=== PATIENT | male | born 1960 ===

== ENCOUNTER 2021-03-28 08:00 | Outpatient (CLI) | payer OTHER ==
[2021-03-28 20:20] LABS: ALBUMIN 3.8 g/dL (3.2-5.5); ALBUMIN/GLOBULIN RATIO 1.3 (1.0-2.2); BILIRUBIN,TOTAL 0.5 mg/dL (0.2-1.0); CALCIUM 8.9 mg/dL (8.5-10.3); CREATININE 2.7 mg/dL (0.6-1.2); POTASSIUM 4.3 mmol/L (3.5-5.0); TOTAL PROTEIN 6.7 g/dL (6.7-8.2)
[2021-03-29 16:50] LABS: BASOPHILS % (AUTO) 0.5 %; EOSINOPHILS # (AUTO) 0.1 10^3/uL (0.0-0.7); EOSINOPHILS % (AUTO) 1.7 %; HCT - HEMATOCRIT 33.3 % (42.0-52.0); HGB - HEMOGLOBIN 10.7 g/dL (14.0-18.0); LYMPHOCYTES # (AUTO) 1.8 10^3/uL (1.5-3.5); LYMPHOCYTES % (AUTO) 28.5 %; MEAN CORPUSCULAR HEMOGLOBIN 27.8 pg (27.0-31.0); MEAN CORPUSCULAR HGB CONC 32.1 g/dL (32.0-36.0); MEAN CORPUSCULAR VOLUME 86.5 fL (80.0-94.0); MEAN PLATELET VOLUME 11.8 fL (7.4-11.4); MONOCYTES # (AUTO) 0.7 10^3/uL (0.0-1.0); MONOCYTES % (AUTO) 11.3 %; NEUTROPHILS # (AUTO) 3.6 10^3/uL (1.5-6.6); NEUTROPHILS % (AUTO) 57.8 %; PLT - PLATELET COUNT 188 10^3/uL (130-450); RED BLOOD COUNT 3.85 10^6/uL (4.70-6.10); RED CELL DISTRIBUTION WIDTH 12.5 % (12.0-15.0); WHITE BLOOD COUNT 6.3 x10^3/uL (4.8-10.8)
== END 2021-03-28 23:59 ==
LOC: LAB.S 08:00
PROVIDERS: ATTEND Emergency Medicine
DX: E11.65 Type 2 diabetes mellitus with hyperglycemia (principal); I10 Essential (primary) hypertension
CPT/HCPCS: 36415; 80053; 83036; 85025

== ENCOUNTER 2021-03-29 08:00 | Outpatient (CLI) | payer OTHER ==
[2021-03-29 20:15] LABS: ESTIMATED AVERAGE GLUCOSE 418 mg/dL (70-100); HEMOGLOBIN A1c% 16.2 % (4.27-6.07)
== END 2021-03-29 23:59 ==
LOC: LAB.S 08:00
PROVIDERS: ATTEND Emergency Medicine
DX: R73.9 Hyperglycemia, unspecified (principal)
CPT/HCPCS: 36415; 83036

== ENCOUNTER 2021-11-28 10:16 | Outpatient (CLI) | payer OTHER ==
[2021-11-28 15:08] LABS: BASOPHILS % (AUTO) 0.2 %; EOSINOPHILS # (AUTO) 0.1 10^3/uL (0.0-0.7); EOSINOPHILS % (AUTO) 1.5 %; HCT - HEMATOCRIT 37.6 % (42.0-52.0); HGB - HEMOGLOBIN 12.1 g/dL (14.0-18.0); LYMPHOCYTES # (AUTO) 2.2 10^3/uL (1.5-3.5); LYMPHOCYTES % (AUTO) 27.4 %; MEAN CORPUSCULAR HEMOGLOBIN 27.5 pg (27.0-31.0); MEAN CORPUSCULAR HGB CONC 32.2 g/dL (32.0-36.0); MEAN CORPUSCULAR VOLUME 85.5 fL (80.0-94.0); MEAN PLATELET VOLUME 11.5 fL (7.4-11.4); MONOCYTES # (AUTO) 0.8 10^3/uL (0.0-1.0); MONOCYTES % (AUTO) 9.8 %; NEUTROPHILS # (AUTO) 4.9 10^3/uL (1.5-6.6); NEUTROPHILS % (AUTO) 60.7 %; PLT - PLATELET COUNT 197 10^3/uL (130-450); RED CELL DISTRIBUTION WIDTH 12.5 % (12.0-15.0); WHITE BLOOD COUNT 8.1 x10^3/uL (4.8-10.8)
[2021-11-28 16:09] LABS: CREATININE,URINE 49.3 mg/dL; MICROALBUM/CREATININE RATIO,UR 38.5 ug/mg (<30.0); MICROALBUMIN,URINE 1.9 mg/dL (0-300.0)
[2021-11-28 16:43] LABS: ALBUMIN 4.6 g/dL (3.2-5.5); ALBUMIN/GLOBULIN RATIO 1.5 (1.0-2.2); ALKALINE PHOSPHATASE 87 IU/L (42-121); ALT ALANINE AMINOTRANSFERASE 17 IU/L (10-60); AST ASPARTATE AMINOTRANSFERASE 21 IU/L (10-42); BILIRUBIN,TOTAL 0.6 mg/dL (0.2-1.0); BUN - BLOOD UREA NITROGEN 74 mg/dL (6-20); CALCIUM 9.3 mg/dL (8.5-10.3); CARBON DIOXIDE - CO2 24 mmol/L (21-32); CHLORIDE 104 mmol/L (101-111); CHOL/HDL RATIO 4.4 (<5.0); CHOLESTEROL 201 mg/dL; CREATININE 3.2 mg/dL (0.6-1.2); GFR - MDRD 20 (>89); GLUCOSE 195 mg/dL (70-100); HDL CHOLESTEROL 46 mg/dL; LDL CHOLESTEROL,CALCULATED 144 mg/dL; LDL/HDL RATIO 3.1 (<3.6); POTASSIUM 5.2 mmol/L (3.5-5.0); SODIUM 138 mmol/L (135-145); TOTAL PROTEIN 7.7 g/dL (6.7-8.2); TRIGLYCERIDES 57 mg/dL; VLDL CHOLESTEROL 11 mg/dL
[2021-11-28 16:55] LABS: THYROID STIMULATING HORMONE 2.25 uIU/mL (0.34-5.60)
[2021-11-28 20:51] LABS: ESTIMATED AVERAGE GLUCOSE 220 mg/dL (70-100); HEMOGLOBIN A1c% 9.3 % (4.27-6.07)
== END 2021-11-28 10:17 | disposition home or self-care (01) ==
LOC: LAB.S 10:16
PROVIDERS: ATTEND Registered Nurse
DX: E11.9 Type 2 diabetes mellitus without complications (principal); Z12.5 Encounter for screening for malignant neoplasm of prostate; Z13.29 Encounter for screening for other suspected endocrine disorder; Z79.899 Other long term (current) drug therapy
CPT/HCPCS: 36415; 80053; 80061; 82043; 82570; 83036; 83721; 84153; 84443; 85025

== ENCOUNTER 2022-02-12 16:38 | Outpatient (CLI) | payer OTHER ==
--- NOTE | 2022-02-13 14:12 | Ultrasound Report ---
PROCEDURE: Retroperitoneal INDICATIONS: STAGE 4 KIDNEY DISEASE TECHNIQUE: Real-time scanning was performed of the kidneys and bladder, with image documentation. COMPARISON: None. FINDINGS: Kidneys: Kidneys are mildly enlarged. Right kidney measures 12.3 cm long; left kidney measures 13.3 cm long. Right renal cortical thickness is 1.8 cm; left renal cortical thickness is 0.8 cm. Renal cortices are slightly echogenic.. There is severe left and moderate to severe right hydronephrosis. U reters are also diffusely dilated bilaterally. No suspicious solid mass lesions. Bladder: Pre-void bladder volume is 654 mL. Post-void residual is 243 mL. Pre-void images demonstr ate no intraluminal masses or stones. Bladder wall is diffusely thickened and trabeculated On pre-vo id images, no ureteral jets are noted with color Doppler interrogation. (Of note, ureteral jets may not be detectable in up to 25% of cases due to insufficient differences in specific gravity between u reteral and bladder urine). Miscellaneous: No free pelvic fluid. Prostate measures 4.3 x 4.1 x 4.9 cm. IMPRESSION: 1.Moderate to severe bilateral hydroureteronephrosis, slightly worse on the left. 2.Post void residual bladder volume is 243 mL. Bladder wall is diffusely thickened and trabeculated, suggesting chronic outlet obstruction. 3.Mild prostatomegaly. Reviewed by: Dashawn Trinidad MD on 02/13/2022 2:10 PM PST Approved by: Dashawn Trinidad MD on 02/13/2022 2:10 PM PST Station ID: [id number]
== END 2022-02-12 16:39 | disposition home or self-care (01) ==
LOC: DI 16:38
PROVIDERS: ATTEND Internal Medicine Nephrology
DX: N18.4 Chronic kidney disease, stage 4 (severe) (principal); N13.30 Unspecified hydronephrosis; N40.0 Benign prostatic hyperplasia without lower urinary tract symptoms

== ENCOUNTER 2022-04-29 15:16 | Emergency (ER) | payer OTHER ==
[2022-04-29 15:34] VITALS: BP 167/80
[2022-04-29] MEDS ORDERED: HYDROmorphone 1 MG/ML CARPUJECT IVP STA (15:46)
--- OUTSIDE RECORDS SUMMARY | 2022-04-29 15:50 | EXTERNAL MEDICAL SUMMARY RPT | Continuity of Care Document ---
:1960 Author Organization [facility] Address [address] [place] [address] Phone Care Team Providers Name Role Phone Maribel Luis Nicoleson Unavailable Unavailable Allergies No information. Encounters No information. Functional Status No information. Immunizations No information. Medications date description facility 2022-02-16 00:00 insulin [facility] 2022-02-26 00:00 insulin gl[facility]ine [facility] 2022-02-16 00:00 lisinopril [facility] 2022-02-26 00:00 lisinopril [facility] 2022-02-16 00:00 lisinopril [facility] 2022-02-26 00:00 lisinopril [facility] 2022-02-16 00:00 insulin gl[facility]ine [facility] 2022-02-26 00:00 insulin gl[facility]ine [facility] 2022-02-16 00:00 insulin glargine [facility] 2022-02-26 00:00 insulin glargine [facility] 2022-02-16 00:00 lisinopril [facility] 2022-02-26 00:00 lisinopril [facility] 2022-02-16 00:00 lisinopril [facility] 2022-02-26 00:00 lisinopril [facility] 2022-02-16 00:00 insulin glargine [facility] 2022-02-26 00:00 insulin glargine [facility] Problems date description facility 2022-02-26 00:00 Other specified disorders of kidney [facility] 2022-02-26 00:00 Obstructive nephropathy [facility] 2022-02-26 00:00 [facility] 2022-04-03 00:00 [facility] 2022-04-04 14:06 Un[facility] 2022-04-12 13:00 Unspecified hydronephrosis [facility] Procedures No information. Results/Labs test date author facility value unit interpret ation Result panel 1 (unknown) (no (unknown) (unknown) (no value) (units (unk nown) date) unknown) (unknown) (no (unknown) (unknown) 04/03/22 (units (unkno wn) date) unknown) (unknown) (no (unknown) (unknown) [id number] (units (unkno wn) date) unknown) (unknown) (no (unknown) (unknown) 61 y/o M (units (unkno wn) date) presents to unknown) clinic as a New Patient. Bilateral hydronephrosis. (unknown) (no (unknown) (unknown) Age/Sex: 61 / M (units (unknown) date) Date of Service: unknown) (unknown) (no (unknown) (unknown) DANNY Padilla (units ( unknown) date) [id number] unknown) (unknown) (no (unknown) (unknown) Attending Dr: (units ( unknown) date) Kishor Becerra MD unknown) (unknown) (no (unknown) (unknown) : 1960 (units (unknown) date) Acct:[id number] unknown) (unknown) (no (unknown) (unknown) Dept at (units (unkno wn) date) . unknown) (unknown) (no (unknown) (unknown) Documented By: (units (unknown) date) Kishor Becerra MD unknown) 04/03/22 1117 (unknown) (no (unknown) (unknown) Draft (units (unkno wn) date) unknown) (unknown) (no (unknown) (unknown) Intake Note: (units (u nknown) date) unknown) (unknown) (no (unknown) (unknown) Intake performed (units (unknown) date) by: unknown) Krystle Stephens (unknown) (no (unknown) (unknown) Intake (units (unkno wn) date) unknown) (unknown) (no (unknown) (unknown) Intake- [facility] (units (unknown) date) Staff unknown) (unknown) (no (unknown) (unknown) [facility] (units (unknown) date) unknown) (unknown) (no (unknown) (unknown) Loc: [facility] (units (unkno wn) date) unknown) (unknown) (no (unknown) (unknown) Patient: (units (unkno wn) date) Suzy Simeon unknown) MR#: [id number] (unknown) (no (unknown) (unknown) Reason For Visit (units (unknown) date) unknown) (unknown) (no (unknown) (unknown) Signed By: (units (unk nown) date) unknown) (unknown) (no (unknown) (unknown) This note may (units ( unknown) date) have been all or unknown) partially generated using voice recognition (unknown) (no (unknown) (unknown) [facility] (units (unknown) date) Visit unknown) (unknown) (no (unknown) (unknown) 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 (units (unknown) date) If there are any unknown) questions, please contact the Medical Records (unknown) (no (unknown) (unknown) may occur. (units (unk nown) date) Occasional unknown) wrong-word or 'sound-alike' substitutions may have (unknown) (no (unknown) (unknown) occurred due to (units (unknown) date) the inherent unknown) limitations of voice recognition software. Please (unknown) (no (unknown) (unknown) read the note (units ( unknown) date) carefully and unknown) recognize, using context, where these substitutions (unknown) (no (unknown) (unknown) software. (units (unkn own) date) Although every unknown) effort is made to edit content, sea kayaking guide errors Result panel 2 (unknown) (no (unknown) (unknown) (no value) (units (unk nown) date) unknown) (unknown) (no (unknown) (unknown) 04/03/22 (units (unkno wn) date) unknown) (unknown) (no (unknown) (unknown) [id number] (units (unkno wn) date) unknown) (unknown) (no (unknown) (unknown) 61 y/o M (units (unkno wn) date) presents to unknown) clinic as a New Patient. Bilateral hydronephrosis. (unknown) (no (unknown) (unknown) Age/Sex: 61 / M (units (unknown) date) Date of Service: unknown) (unknown) (no (unknown) (unknown) DANNY Padilla (units ( unknown) date) [id number] unknown) (unknown) (no (unknown) (unknown) Attending Dr: (units ( unknown) date) Kishor Becerra MD unknown) (unknown) (no (unknown) (unknown) : 1960 (units (unknown) date) Acct:[id number] unknown) (unknown) (no (unknown) (unknown) Dept at (units (unkno wn) date) . unknown) (unknown) (no (unknown) (unknown) Documented By: (units (unknown) date) Kishor Becerra MD unknown) 04/03/22 1117 (unknown) (no (unknown) (unknown) Draft (units (unkno wn) date) unknown) (unknown) (no (unknown) (unknown) Intake Note: (units (u nknown) date) unknown) (unknown) (no (unknown) (unknown) Intake performed (units (unknown) date) by: unknown) Krystle Stephens (unknown) (no (unknown) (unknown) Intake (units (unkno wn) date) unknown) (unknown) (no (unknown) (unknown) Intake- [facility] (units (unknown) date) Staff unknown) (unknown) (no (unknown) (unknown) [facility] (units (unknown) date) unknown) (unknown) (no (unknown) (unknown) Loc: [facility] (units (unkno wn) date) unknown) (unknown) (no (unknown) (unknown) Patient: (units (unkno wn) date) Suzy Simeon unknown) MR#: [id number] (unknown) (no (unknown) (unknown) Reason For Visit (units (unknown) date) unknown) (unknown) (no (unknown) (unknown) Signed By: (units (unk nown) date) unknown) (unknown) (no (unknown) (unknown) This note may (units ( unknown) date) have been all or unknown) partially generated using voice recognition (unknown) (no (unknown) (unknown) [facility]rology Office (units (unknown) date) Visit unknown) (unknown) (no (unknown) (unknown) 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 (units (unknown) date) If there are any unknown) questions, please contact the Medical Records (unknown) (no (unknown) (unknown) may occur. (units (unk nown) date) Occasional unknown) wrong-word or 'sound-alike' substitutions may have (unknown) (no (unknown) (unknown) occurred due to (units (unknown) date) the inherent unknown) limitations of voice recognition software. Please (unknown) (no (unknown) (unknown) read the note (units ( unknown) date) carefully and unknown) recognize, using context, where these substitutions (unknown) (no (unknown) (unknown) software. (units (unkn own) date) Although every unknown) effort is made to edit content, sea kayaking guide errors Result panel 3 (unknown) (no (unknown) (unknown) (no value) (units (unk nown) date) unknown) (unknown) (no (unknown) (unknown) 04/03/22 (units (unkno wn) date) unknown) (unknown) (no (unknown) (unknown) [id number] (units (unkno wn) date) unknown) (unknown) (no (unknown) (unknown) 11:53 (units (unkno wn) date) unknown) (unknown) (no (unknown) (unknown) 61 y/o M (units (unkno wn) date) presents to unknown) clinic as a New Patient. Bilateral hydronephrosis. (unknown) (no (unknown) (unknown) Age/Sex: 61 / M (units (unknown) date) Date of Service: unknown) (unknown) (no (unknown) (unknown) Allergies (units (unkn own) date) unknown) (unknown) (no (unknown) (unknown) [place], [place] (units ( unknown) date) [id number] unknown) (unknown) (no (unknown) (unknown) Attending Dr: (units ( unknown) date) Kishor Becerra MD unknown) (unknown) (no (unknown) (unknown) BP 220/105 H (units (u nknown) date) unknown) (unknown) (no (unknown) (unknown) Blood Pressure (units (unknown) date) Location Lt unknown) brachial (unknown) (no (unknown) (unknown) : 1960 (units (unknown) date) Acct:[id number] unknown) (unknown) (no (unknown) (unknown) Dept at (units (unkno wn) date) . unknown) (unknown) (no (unknown) (unknown) Documented By: (units (unknown) date) Kishor Becerra MD unknown) 04/03/22 1117 (unknown) (no (unknown) (unknown) Draft (units (unkno wn) date) unknown) (unknown) (no (unknown) (unknown) Intake Note: (units (u nknown) date) unknown) (unknown) (no (unknown) (unknown) Intake performed (units (unknown) date) by: unknown) Krystle Stephens (unknown) (no (unknown) (unknown) Intake (units (unkno wn) date) unknown) (unknown) (no (unknown) (unknown) Intake- [facility] (units (unknown) date) Staff unknown) (unknown) (no (unknown) (unknown) [facility] (units (unknown) date) unknown) (unknown) (no (unknown) (unknown) Loc: [facility] (units (unkno wn) date) unknown) (unknown) (no (unknown) (unknown) No Known Drug (units ( unknown) date) Allergies Allergy unknown) (Unverified 04/03/22 11:45) (unknown) (no (unknown) (unknown) Oxygen Delivery (units (unknown) date) Method room air unknown) (unknown) (no (unknown) (unknown) Patient: (units (unkno wn) date) Suzy Simeon unknown) MR#: [id number] (unknown) (no (unknown) (unknown) Position Sitting (units (unknown) date) unknown) (unknown) (no (unknown) (unknown) Pulse 77 (units (unkno wn) date) unknown) (unknown) (no (unknown) (unknown) Pulse Oximetry (units (unknown) date) (%) 100 unknown) (unknown) (no (unknown) (unknown) Pulse Source (units (u nknown) date) Monitor unknown) (unknown) (no (unknown) (unknown) Reason For Visit (units (unknown) date) unknown) (unknown) (no (unknown) (unknown) Respiration 16 (units (unknown) date) unknown) (unknown) (no (unknown) (unknown) Signed By: (units (unk nown) date) unknown) (unknown) (no (unknown) (unknown) This note may (units ( unknown) date) have been all or unknown) partially generated using voice recognition (unknown) (no (unknown) (unknown) [facility] Office (units (unknown) date) Visit unknown) (unknown) (no (unknown) (unknown) 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 (units (unknown) date) If there are any unknown) questions, please contact the Medical Records (unknown) (no (unknown) (unknown) may occur. (units (unk nown) date) Occasional unknown) wrong-word or 'sound-alike' substitutions may have (unknown) (no (unknown) (unknown) occurred due to (units (unknown) date) the inherent unknown) limitations of voice recognition software. Please (unknown) (no (unknown) (unknown) read the note (units ( unknown) date) carefully and unknown) recognize, using context, where these substitutions (unknown) (no (unknown) (unknown) software. (units (unkn own) date) Although every unknown) effort is made to edit content, sea kayaking guide errors Result panel 4 (unknown) (no (unknown) (unknown) (no value) (units (unk nown) date) unknown) (unknown) (no (unknown) (unknown) 04/03/22 (units (unkno wn) date) unknown) (unknown) (no (unknown) (unknown) [id number] (units (unkno wn) date) unknown) (unknown) (no (unknown) (unknown) 11:53 (units (unkno wn) date) unknown) (unknown) (no (unknown) (unknown) 61 y/o M (units (unkno wn) date) presents to unknown) clinic as a New Patient. Bilateral hydronephrosis. (unknown) (no (unknown) (unknown) Age/Sex: 61 / M (units (unknown) date) Date of Service: unknown) (unknown) (no (unknown) (unknown) Allergies (units (unkn own) date) unknown) (unknown) (no (unknown) (unknown) [place] (units ( unknown) date) [id number] unknown) (unknown) (no (unknown) (unknown) Assessment + (units (u nknown) date) Plan unknown) (unknown) (no (unknown) (unknown) Attending Dr: (units ( unknown) date) Kishor Becerra MD unknown) (unknown) (no (unknown) (unknown) BP 220/105 H (units (u nknown) date) unknown) (unknown) (no (unknown) (unknown) Basic Metabolic (units (unknown) date) Panel 2 Weeks unknown) N13.30 - Unspecified hydronephrosis (unknown) (no (unknown) (unknown) Basic Metabolic (units (unknown) date) Panel Today unknown) N13.30 - Unspecified hydronephrosis (unknown) (no (unknown) (unknown) Bilateral (units (unkn own) date) hydronephrosis unknown) (unknown) (no (unknown) (unknown) Blood Pressure (units (unknown) date) Location Lt unknown) brachial (unknown) (no (unknown) (unknown) : 1960 (units (unknown) date) Acct:[id number] unknown) (unknown) (no (unknown) (unknown) Dept at (units (unkno wn) date) . unknown) (unknown) (no (unknown) (unknown) Documented By: (units (unknown) date) Kishor Becerra MD unknown) 04/03/22 1117 (unknown) (no (unknown) (unknown) Draft (units (unkno wn) date) unknown) (unknown) (no (unknown) (unknown) Intake Note: (units (u nknown) date) unknown) (unknown) (no (unknown) (unknown) Intake performed (units (unknown) date) by: unknown) Krystle Stephens (unknown) (no (unknown) (unknown) Intake (units (unkno wn) date) unknown) (unknown) (no (unknown) (unknown) Intake- [facility] (units (unknown) date) Staff unknown) (unknown) (no (unknown) (unknown) [facility] (units (unknown) date) unknown) (unknown) (no (unknown) (unknown) Loc: [facility] (units (unkno wn) date) unknown) (unknown) (no (unknown) (unknown) Medical History (units (unknown) date) (Updated 04/03/22 unknown) @ 12:21 by Kishor Becerra MD) (unknown) (no (unknown) (unknown) No Known Drug (units ( unknown) date) Allergies Allergy unknown) (Unverified 04/03/22 11:45) (unknown) (no (unknown) (unknown) Office (units (unkno wn) date) Procedures unknown) (unknown) (no (unknown) (unknown) Orders (units (unkno wn) date) unknown) (unknown) (no (unknown) (unknown) Orders: (units (unkno wn) date) unknown) (unknown) (no (unknown) (unknown) Oxygen Delivery (units (unknown) date) Method room air unknown) (unknown) (no (unknown) (unknown) PFSH (units (unkno wn) date) unknown) (unknown) (no (unknown) (unknown) Patient: (units (unkno wn) date) Suzy Simeon unknown) MR#: [id number] (unknown) (no (unknown) (unknown) Position Sitting (units (unknown) date) unknown) (unknown) (no (unknown) (unknown) Procedure Notes: (units (unknown) date) unknown) (unknown) (no (unknown) (unknown) Pt is cleaned (units ( unknown) date) and prepared with unknown) bensone, using clean/ aseptic technique for (unknown) (no (unknown) (unknown) Pulse 77 (units (unkno wn) date) unknown) (unknown) (no (unknown) (unknown) Pulse Oximetry (units (unknown) date) (%) 100 unknown) (unknown) (no (unknown) (unknown) Pulse Source (units (u nknown) date) Monitor unknown) (unknown) (no (unknown) (unknown) Reason For Visit (units (unknown) date) unknown) (unknown) (no (unknown) (unknown) Respiration 16 (units (unknown) date) unknown) (unknown) (no (unknown) (unknown) Signed By: (units (unk nown) date) unknown) (unknown) (no (unknown) (unknown) This note may (units ( unknown) date) have been all or unknown) partially generated using voice recognition (unknown) (no (unknown) (unknown) US renal (units (unkno wn) date) complete 2 Weeks unknown) N13.30 - Unspecified hydronephrosis (unknown) (no (unknown) (unknown) [facility] Office (units (unknown) date) Visit unknown) (unknown) (no (unknown) (unknown) 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 (units (unknown) date) If there are any unknown) questions, please contact the Medical Records (unknown) (no (unknown) (unknown) inflated with (units ( unknown) date) 10cc sterile H2O. unknown) New collection device is attached and pt is (unknown) (no (unknown) (unknown) insertion of new (units (unknown) date) device, balloon unknown) is checked for evidence of deficiency, there is (unknown) (no (unknown) (unknown) may occur. (units (unk nown) date) Occasional unknown) wrong-word or 'sound-alike' substitutions may have (unknown) (no (unknown) (unknown) none identified. (units (unknown) date) [address] Arora unknown) Catheter is inserted, without difficulty. Balloon is (unknown) (no (unknown) (unknown) occurred due to (units (unknown) date) the inherent unknown) limitations of voice recognition software. Please (unknown) (no (unknown) (unknown) read the note (units ( unknown) date) carefully and unknown) recognize, using context, where these substitutions (unknown) (no (unknown) (unknown) released. An (units (u nknown) date) overnight urine unknown) bag given as well. (unknown) (no (unknown) (unknown) software. (units (unkn own) date) Although every unknown) effort is made to edit content, sea kayaking guide errors Result panel 5 (unknown) (no date) (unknown) (unknown) 102 mmol/l (unkn own) (unknown) (no date) (unknown) (unknown) 140 mmol/l (unkn own) (unknown) (no date) (unknown) (unknown) 17.8 (units unknown) (unknown) (unknown) (no date) (unknown) (unknown) 2.58 mg/dl (unkn own) (unknown) (no date) (unknown) (unknown) 27 ml/min (unkn own) (unknown) (no date) (unknown) (unknown) 27 ml/min (unkn own) (unknown) (no date) (unknown) (unknown) 28 mmol/l (unkn own) (unknown) (no date) (unknown) (unknown) 3.7 mmol/l (unkn own) (unknown) (no date) (unknown) (unknown) 46 mg/dl (unkn own) (unknown) (no date) (unknown) (unknown) 76 mg/dl (unkn own) (unknown) (no date) (unknown) (unknown) 76 mg/dl (unkn own) (unknown) (no date) (unknown) (unknown) 8.7 mg/dl (unkn own) Result panel 6 (unknown) (no (unknown) (unknown) (no value) (units (unk nown) date) unknown) (unknown) (no (unknown) (unknown) 04/03/22 (units (unkno wn) date) unknown) (unknown) (no (unknown) (unknown) [id number] (units (unkno wn) date) unknown) (unknown) (no (unknown) (unknown) 11:53 (units (unkno wn) date) unknown) (unknown) (no (unknown) (unknown) 61 y/o M (units (unkno wn) date) presents to unknown) clinic as a New Patient. Bilateral hydronephrosis. (unknown) (no (unknown) (unknown) Age/Sex: 61 / M (units (unknown) date) Date of Service: unknown) (unknown) (no (unknown) (unknown) Allergies (units (unkn own) date) unknown) (unknown) (no (unknown) (unknown) [place], [place] (units ( unknown) date) [id number] unknown) (unknown) (no (unknown) (unknown) Assessment + (units (u nknown) date) Plan unknown) (unknown) (no (unknown) (unknown) Attending Dr: (units ( unknown) date) Kishor Becerra MD unknown) (unknown) (no (unknown) (unknown) BP 220/105 H (units (u nknown) date) unknown) (unknown) (no (unknown) (unknown) Basic Metabolic (units (unknown) date) Panel 04/03/22 unknown) N13.30 - Unspecified hydronephrosis (unknown) (no (unknown) (unknown) Basic Metabolic (units (unknown) date) Panel 2 Weeks unknown) N13.30 - Unspecified hydronephrosis (unknown) (no (unknown) (unknown) Bilateral (units (unkn own) date) hydronephrosis unknown) (unknown) (no (unknown) (unknown) Blood Pressure (units (unknown) date) Location Lt unknown) brachial (unknown) (no (unknown) (unknown) : 1960 (units (unknown) date) Acct:[id number] unknown) (unknown) (no (unknown) (unknown) Dept at (units (unkno wn) date) . unknown) (unknown) (no (unknown) (unknown) Documented By: (units (unknown) date) Kishor Becerra MD unknown) 04/03/22 1117 (unknown) (no (unknown) (unknown) Draft (units (unkno wn) date) unknown) (unknown) (no (unknown) (unknown) Intake Note: (units (u nknown) date) unknown) (unknown) (no (unknown) (unknown) Intake performed (units (unknown) date) by: unknown) Krystle Stephens (unknown) (no (unknown) (unknown) Intake (units (unkno wn) date) unknown) (unknown) (no (unknown) (unknown) Intake- [facility] (units (unknown) date) Staff unknown) (unknown) (no (unknown) (unknown) [facility] (units (unknown) date) unknown) (unknown) (no (unknown) (unknown) Loc: [facility] (units (unkno wn) date) unknown) (unknown) (no (unknown) (unknown) Medical History (units (unknown) date) (Updated 04/03/22 unknown) @ 12:21 by Kishor Becerra MD) (unknown) (no (unknown) (unknown) No Known Drug (units ( unknown) date) Allergies Allergy unknown) (Unverified 04/03/22 11:45) (unknown) (no (unknown) (unknown) Office (units (unkno wn) date) Procedures unknown) (unknown) (no (unknown) (unknown) Orders (units (unkno wn) date) unknown) (unknown) (no (unknown) (unknown) Orders: (units (unkno wn) date) unknown) (unknown) (no (unknown) (unknown) Oxygen Delivery (units (unknown) date) Method room air unknown) (unknown) (no (unknown) (unknown) PFSH (units (unkno wn) date) unknown) (unknown) (no (unknown) (unknown) POC Urine Dip (units ( unknown) date) 04/03/22 N13.30 - unknown) Unspecified hydronephrosis (unknown) (no (unknown) (unknown) Patient: (units (unkno wn) date) Suzy Simeon unknown) MR#: [id number] (unknown) (no (unknown) (unknown) Position Sitting (units (unknown) date) unknown) (unknown) (no (unknown) (unknown) Procedure Notes: (units (unknown) date) unknown) (unknown) (no (unknown) (unknown) Pt is cleaned (units ( unknown) date) and prepared with unknown) hibacleanse, using clean/ aseptic technique for (unknown) (no (unknown) (unknown) Pulse 77 (units (unkno wn) date) unknown) (unknown) (no (unknown) (unknown) Pulse Oximetry (units (unknown) date) (%) 100 unknown) (unknown) (no (unknown) (unknown) Pulse Source (units (u nknown) date) Monitor unknown) (unknown) (no (unknown) (unknown) Reason For Visit (units (unknown) date) unknown) (unknown) (no (unknown) (unknown) Respiration 16 (units (unknown) date) unknown) (unknown) (no (unknown) (unknown) Signed By: (units (unk nown) date) unknown) (unknown) (no (unknown) (unknown) This note may (units ( unknown) date) have been all or unknown) partially generated using voice recognition (unknown) (no (unknown) (unknown) US renal (units (unkno wn) date) complete 2 Weeks unknown) N13.30 - Unspecified hydronephrosis (unknown) (no (unknown) (unknown) Urology Office (units (unknown) date) Visit unknown) (unknown) (no (unknown) (unknown) 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 (units (unknown) date) If there are any unknown) questions, please contact the Medical Records (unknown) (no (unknown) (unknown) inflated with (units ( unknown) date) 10cc sterile H2O. unknown) New collection device is attached and pt is (unknown) (no (unknown) (unknown) insertion of new (units (unknown) date) device, balloon unknown) is checked for evidence of deficiency, there is (unknown) (no (unknown) (unknown) may occur. (units (unk nown) date) Occasional unknown) wrong-word or 'sound-alike' substitutions may have (unknown) (no (unknown) (unknown) none identified. (units (unknown) date) [address]ora unknown) Catheter is inserted, without difficulty. Balloon is (unknown) (no (unknown) (unknown) occurred due to (units (unknown) date) the inherent unknown) limitations of voice recognition software. Please (unknown) (no (unknown) (unknown) read the note (units ( unknown) date) carefully and unknown) recognize, using context, where these substitutions (unknown) (no (unknown) (unknown) released. An (units (u nknown) date) overnight urine unknown) bag given as well. (unknown) (no (unknown) (unknown) software. (units (unkn own) date) Although every unknown) effort is made to edit content, sea kayaking guide errors Result panel 7 (unknown) (no (unknown) (unknown) (no value) (units (unk nown) date) unknown) (unknown) (no (unknown) (unknown) (1) Bilateral (units ( unknown) date) hydronephrosis: unknown) (unknown) (no (unknown) (unknown) (2) Incomplete (units (unknown) date) emptying of bladder: unknown) (unknown) (no (unknown) (unknown) (3) Chronic kidney (units (unknown) date) disease (CKD) stage unknown) G4/A1, severely decreased glomerular (unknown) (no (unknown) (unknown) (4) Obstructive (units (unknown) date) uropathy: unknown) (unknown) (no (unknown) (unknown) (5) Insulin (units (un known) date) dependent diabetes unknown) mellitus: (unknown) (no (unknown) (unknown) (6) Hypertension: (units (unknown) date) unknown) (unknown) (no (unknown) (unknown) 04/03/22 (units (unkno wn) date) unknown) (unknown) (no (unknown) (unknown) 04/04/22 1211 (units ( unknown) date) unknown) (unknown) (no (unknown) (unknown) [id number] (units (unkno wn) date) unknown) (unknown) (no (unknown) (unknown) 11/28/2021 was (units (unknown) date) 1.281 unknown) (unknown) (no (unknown) (unknown) 11:53 (units (unkno wn) date) unknown) (unknown) (no (unknown) (unknown) 61 y/o M presents (units (unknown) date) to clinic as a New unknown) Patient. Bilateral hydronephrosis. (unknown) (no (unknown) (unknown) Abdominal exam: (units (unknown) date) Soft, nontender, unknown) without palpable mass or hepatosplenomegaly (unknown) (no (unknown) (unknown) Add'l Complaint: (units (unknown) date) unknown) (unknown) (no (unknown) (unknown) Age/Sex: 61 / M (units (unknown) date) Date of Service: unknown) (unknown) (no (unknown) (unknown) All systems (units (un known) date) reviewed + are unknown) unremarkable except as noted in HPI and below (And (unknown) (no (unknown) (unknown) Allergies (units (unkn own) date) unknown) (unknown) (no (unknown) (unknown) [place] [address] (unit s (unknown) date) unknown) (unknown) (no (unknown) (unknown) And again it (units (u nknown) date) appears that his unknown) renal failure might in part be due to obstructive (unknown) (no (unknown) (unknown) Assessment + Plan (units (unknown) date) unknown) (unknown) (no (unknown) (unknown) Assessment and (units (unknown) date) plan: Patient with unknown) bilateral hydronephrosis incomplete emptying (unknown) (no (unknown) (unknown) Attending Dr: Kishor (unit s (unknown) date) Brittany Becerra MD unknown) (unknown) (no (unknown) (unknown) BP 220/105 H (units (u nknown) date) unknown) (unknown) (no (unknown) (unknown) Basic Metabolic (units (unknown) date) Panel 04/03/22 unknown) N13.30 - Unspecified hydronephrosis (unknown) (no (unknown) (unknown) Basic Metabolic (units (unknown) date) Panel 2 Weeks N13.30 unknown) - Unspecified hydronephrosis (unknown) (no (unknown) (unknown) Bilateral (units (unkn own) date) hydronephrosis unknown) (unknown) (no (unknown) (unknown) Blood Pressure (units (unknown) date) Location Lt brachial unknown) (unknown) (no (unknown) (unknown) Cardiovascular (units (unknown) date) exam: Regular rate unknown) and rhythm without murmur (unknown) (no (unknown) (unknown) Chief Complaint (units (unknown) date) unknown) (unknown) (no (unknown) (unknown) Chief Complaint: (units (unknown) date) Bilateral unknown) hydronephrosis (unknown) (no (unknown) (unknown) Chronic kidney (units (unknown) date) disease (CKD) stage unknown) G4/A1, severely decreased glomerular (unknown) (no (unknown) (unknown) Code(s): (units (unkno wn) date) unknown) (unknown) (no (unknown) (unknown) Const (units (unkno wn) date) unknown) (unknown) (no (unknown) (unknown) : 1960 (units (unknown) date) Acct:[id number] unknown) (unknown) (no (unknown) (unknown) Dept at (units (unkno wn) date) . unknown) (unknown) (no (unknown) (unknown) Details: (units (unkno wn) date) unknown) (unknown) (no (unknown) (unknown) Documented By: (units (unknown) date) Kishor Becerra MD unknown) 04/03/22 1117 (unknown) (no (unknown) (unknown) Essential (primary) (unit s (unknown) date) hypertension unknown) (unknown) (no (unknown) (unknown) Exam Narrative (units (unknown) date) unknown) (unknown) (no (unknown) (unknown) Exam Narrative: (units (unknown) date) unknown) (unknown) (no (unknown) (unknown) Exam (units (unkno wn) date) unknown) (unknown) (no (unknown) (unknown) General: This is an (unit s (unknown) date) awake, alert, unknown) oriented fit-appearing 61-year-old male who (unknown) (no (unknown) (unknown) Genitourinary exam: (unit s (unknown) date) Normal male unknown) (unknown) (no (unknown) (unknown) HPI (units (unkno wn) date) unknown) (unknown) (no (unknown) (unknown) Hypertension type: (units (unknown) date) primary hypertension unknown) Qualified Code(s): I10 (unknown) (no (unknown) (unknown) Hypertension (units (u nknown) date) unknown) (unknown) (no (unknown) (unknown) I10 - Essential (units (unknown) date) (primary) unknown) hypertension (unknown) (no (unknown) (unknown) In reviewing the (units (unknown) date) notes the patient unknown) already meets criteria for renal transplant. (unknown) (no (unknown) (unknown) Incomplete emptying (unit s (unknown) date) of bladder unknown) (unknown) (no (unknown) (unknown) Incomplete emptying (unit s (unknown) date) of bladder, chronic unknown) kidney disease suddenly worsening (unknown) (no (unknown) (unknown) Insulin dependent (units (unknown) date) diabetes mellitus unknown) (unknown) (no (unknown) (unknown) Intake Note: (units (u nknown) date) unknown) (unknown) (no (unknown) (unknown) Intake performed (units (unknown) date) by: Krystle Stephens unknown) (unknown) (no (unknown) (unknown) Intake (units (unkno wn) date) unknown) (unknown) (no (unknown) (unknown) Intake- Clincial (units (unknown) date) Staff unknown) (unknown) (no (unknown) (unknown) [facility] (units (unknown) date) unknown) (unknown) (no (unknown) (unknown) Loc: [facility] (units (unkno wn) date) unknown) (unknown) (no (unknown) (unknown) Lungs: Clear full (units (unknown) date) and equal unknown) (unknown) (no (unknown) (unknown) Medical History (units (unknown) date) (Updated 04/04/22 @ unknown) 12:07 by Kishor Becerra MD) (unknown) (no (unknown) (unknown) N13.30 - (units (unkno wn) date) Unspecified unknown) hydronephrosis (unknown) (no (unknown) (unknown) N13.9 - Obstructive (unit s (unknown) date) and reflux uropathy, unknown) unspecified (unknown) (no (unknown) (unknown) N18.4 - Chronic (units (unknown) date) kidney disease, unknown) stage 4 (severe) (unknown) (no (unknown) (unknown) Neurologic exam: (units (unknown) date) Grossly intact unknown) (unknown) (no (unknown) (unknown) No Known Drug (units ( unknown) date) Allergies Allergy unknown) (Unverified 04/03/22 11:45) (unknown) (no (unknown) (unknown) Obstructive (units (un known) date) uropathy unknown) (unknown) (no (unknown) (unknown) Office Procedures (units (unknown) date) unknown) (unknown) (no (unknown) (unknown) Orders (units (unkno wn) date) unknown) (unknown) (no (unknown) (unknown) Orders: (units (unkno wn) date) unknown) (unknown) (no (unknown) (unknown) Oxygen Delivery (units (unknown) date) Method room air unknown) (unknown) (no (unknown) (unknown) PFSH (units (unkno wn) date) unknown) (unknown) (no (unknown) (unknown) POC Urine Dip (units ( unknown) date) 04/03/22 N13.30 - unknown) Unspecified hydronephrosis (unknown) (no (unknown) (unknown) Patient: (units (unkno wn) date) Yolande Simeonrio MR#: unknown) M00 (unknown) (no (unknown) (unknown) Plan (units (unkno wn) date) unknown) (unknown) (no (unknown) (unknown) Position Sitting (units (unknown) date) unknown) (unknown) (no (unknown) (unknown) Procedure Notes: (units (unknown) date) unknown) (unknown) (no (unknown) (unknown) Pt is cleaned and (units (unknown) date) prepared with unknown) hibacleanse, using clean/ aseptic technique for (unknown) (no (unknown) (unknown) Pulse 77 (units (unkno wn) date) unknown) (unknown) (no (unknown) (unknown) Pulse Oximetry (%) (units (unknown) date) 100 unknown) (unknown) (no (unknown) (unknown) Pulse Source (units (u nknown) date) Monitor unknown) (unknown) (no (unknown) (unknown) Qualifiers: (units (un known) date) unknown) (unknown) (no (unknown) (unknown) R33.9 - Retention (units (unknown) date) of urine, unknown) unspecified (unknown) (no (unknown) (unknown) ROS (units (unkno wn) date) unknown) (unknown) (no (unknown) (unknown) Reason For Visit (units (unknown) date) unknown) (unknown) (no (unknown) (unknown) Respiration 16 (units (unknown) date) unknown) (unknown) (no (unknown) (unknown) Signed By: (units (unk nown) date) <Electronically unknown) signed by Kishor Becerra MD> (unknown) (no (unknown) (unknown) Signed (units (unkno wn) date) unknown) (unknown) (no (unknown) (unknown) Status: Acute (units ( unknown) date) unknown) (unknown) (no (unknown) (unknown) This 61-year-old (units (unknown) date) male is sent to unknown) Urology Clinic as a new patient with complaint (unknown) (no (unknown) (unknown) This note may have (units (unknown) date) been all or unknown) partially generated using voice recognition (unknown) (no (unknown) (unknown) US renal complete 2 (unit s (unknown) date) Weeks N13.30 - unknown) Unspecified hydronephrosis (unknown) (no (unknown) (unknown) Urology Office (units (unknown) date) Visit unknown) (unknown) (no (unknown) (unknown) 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 At a minimum (unit s (unknown) date) the patient was unknown) somewhat in shock and it appeared that he (unknown) (no (unknown) (unknown) and his significant (unit s (unknown) date) other regarding his unknown) situation and the rationale for the (unknown) (no (unknown) (unknown) bladder. He was (units (unknown) date) sent by his unknown) stripe marker with concern for obstructive uropathy. (unknown) (no (unknown) (unknown) chronic kidney (units (unknown) date) disease which could unknown) be multifactorial could be related to his (unknown) (no (unknown) (unknown) creatinine ratio (units (unknown) date) less than 30 mg/g unknown) (unknown) (no (unknown) (unknown) creatinine ratio (units (unknown) date) less than 30 mg/g: unknown) (unknown) (no (unknown) (unknown) diabetes mellitus (units (unknown) date) hypertension and unknown) obstructive uropathy. To evaluate the (unknown) (no (unknown) (unknown) discussion using (units (unknown) date) diagrams showing unknown) pictures of what his kidneys look like after (unknown) (no (unknown) (unknown) filtration rate (units (unknown) date) (GFR) between 15-29 unknown) mL/min/1.73 square meter and albuminuria (unknown) (no (unknown) (unknown) have occurred. If (units (unknown) date) there are any unknown) questions, please contact the Medical Records (unknown) (no (unknown) (unknown) having reviewed his (unit s (unknown) date) renal ultrasound the unknown) patient had a much better (unknown) (no (unknown) (unknown) hyperplasia, lower (units (unknown) date) urinary tract unknown) symptoms (unknown) (no (unknown) (unknown) in 2 weeks we will (units (unknown) date) repeat the BMP. Had unknown) a lengthy discussion with the patient (unknown) (no (unknown) (unknown) inflated with 10cc (units (unknown) date) sterile H2O. New unknown) collection device is attached and pt is (unknown) (no (unknown) (unknown) information (units (un known) date) determine a future unknown) plan of action. Did discuss with them the (unknown) (no (unknown) (unknown) insertion of new (units (unknown) date) device, balloon is unknown) checked for evidence of deficiency, there is (unknown) (no (unknown) (unknown) laboratory for labs (unit s (unknown) date) and we will have him unknown) return in 2 weeks with the above (unknown) (no (unknown) (unknown) may occur. (units (unk nown) date) Occasional unknown) wrong-word or 'sound-alike' substitutions may have (unknown) (no (unknown) (unknown) none identified. 18 (units (unknown) date) F Arora Catheter is unknown) inserted, without difficulty. Balloon is (unknown) (no (unknown) (unknown) obstructive (units (un known) date) uropathy component unknown) plan would be to place a Arora catheter day have (unknown) (no (unknown) (unknown) occurred due to the (unit s (unknown) date) inherent limitations unknown) of voice recognition software. Please (unknown) (no (unknown) (unknown) of bilateral (units (u nknown) date) hydronephrosis unknown) worsening renal function and incomplete emptying of (unknown) (no (unknown) (unknown) of bladder likely (units (unknown) date) secondary to unknown) prostatic obstruction. Patient with worsening (unknown) (no (unknown) (unknown) possible need for (units (unknown) date) cystoscopy at that unknown) follow-up appointment. His PSA on (unknown) (no (unknown) (unknown) problem list) (units ( unknown) date) unknown) (unknown) (no (unknown) (unknown) read the note (units ( unknown) date) carefully and unknown) recognize, using context, where these substitutions (unknown) (no (unknown) (unknown) released. An (units (u nknown) date) overnight urine bag unknown) given as well. (unknown) (no (unknown) (unknown) repeat BMP. At that (unit s (unknown) date) time will make unknown) future plans. Arora catheter is placed (unknown) (no (unknown) (unknown) software. Although (units (unknown) date) every effort is made unknown) to edit content, sea kayaking guide errors (unknown) (no (unknown) (unknown) suspect obstructive (unit s (unknown) date) uropathy, bladder unknown) wall thickening, benign prostatic (unknown) (no (unknown) (unknown) the patient obtain (units (unknown) date) a BMP return to unknown) clinic in 2 weeks with repeat ultrasound and (unknown) (no (unknown) (unknown) today appears in no (unit s (unknown) date) acute distress. unknown) (unknown) (no (unknown) (unknown) today by staff. (units (unknown) date) unknown) (unknown) (no (unknown) (unknown) understanding. A (units (unknown) date) Arora catheter will unknown) be placed today patient will go to the (unknown) (no (unknown) (unknown) uropathy. To test (units (unknown) date) that theory a Arora unknown) catheter will be placed today and in 2 (unknown) (no (unknown) (unknown) weeks we will (units ( unknown) date) repeat the patient's unknown) renal ultrasound. Today we will draw a BMP (unknown) (no (unknown) (unknown) would did not (units ( unknown) date) completely unknown) understand his situation. But after a lengthy Social History date description facility 2022-04-03 00:00 Unknown if ever [facility] Vital Signs date measurement value units 2022-04-03 00:00 BP_diastolic 105 mmHg 2022-04-03 00:00 BP_systolic 220 mmHg 2022-04-03 00:00 heart_rate 77 /min 2022-04-03 00:00 o2_saturation 100 % 2022-04-03 00:00 respiration_rate 16 /min
--- NOTE | 2022-04-29 16:00 | ED Physician Documentation ---
History of Present Illness - Stated complaint Stated Complaint: CATH BAG LEAK - Chief complaint Chief Complaint: General - History obtained from History obtained from: Patient - Additonal information Additional information: He has indwelling Arora due to urinary retention. The leg bag sprung a leak yesterday and he needs a new leg bag. He also has questions about how to schedule his ultrasound. PD PAST MEDICAL HISTORY - Allergies Allergies/Adverse Reactions: Allergies Allergy/AdvReac Type Severity Reaction Status Date / Time No Known Drug Allergies Allergy Verified 04/29/22 15:34 PD ED PE NORMAL - Vitals Vital signs reviewed: Yes - General General: Alert and oriented X 3, No acute distress - Neuro Neuro: Alert and oriented X 3, Normal speech - Psych Psych: Normal mood, Normal affect Results - Vitals Vitals: Vital Signs - 24 hr 04/29/22 15:32 Temperature 37.3 C Heart Rate 76 Respiratory 16 Rate Blood Pressure 167/80 H O2 Saturation 100 Oxygen O2 Source Room air PD Medical Decision Making - ED course ED course: He was provided with new leg bags and guidance on how to schedule the ultrasound that has already been ordered. Departure - Departure Disposition: 01 Home, Self Care Clinical Impression: Arora catheter problem Condition: Good Record reviewed to determine appropriate education?: Yes Instructions: ED Catheter Care Arora Discharge Date/Time: 04/29/22 16:21
== END 2022-04-29 16:21 | disposition home or self-care (01) ==
LOC: ED 15:16
DX: T83.038A Leakage of other urinary catheter, initial encounter (principal); R33.9 Retention of urine, unspecified
CPT/HCPCS: 99281; 99282

== ENCOUNTER 2022-04-30 13:04 | Outpatient (CLI) | payer OTHER ==
--- NOTE | 2022-04-30 15:57 | Ultrasound Report ---
PROCEDURE: Retroperitoneal INDICATIONS: BILATERAL HYDRONEPHROSIS TECHNIQUE: Real-time scanning was performed of the retroperitoneal organs, with image documentation. COMPARISON: None. FINDINGS: Right kidney measures 12.4 cm in length and 1.5 cm in cortical thickness. Zdaz-dy-gragdyua hydronephr osis has improved from prior exam. No proximal obstructing lesion. Left kidney measures 11.9 cm in length and 1.3 cm in cortical thickness. Moderate to severe hydroneph rosis is similar to prior exam. Both ureters are dilated measuring up to 2.3 cm in diameter on the left. The distal left ureter, ther e is a solid soft tissue mass lesion measuring 2.7 cm. Right ureter is less well visualized. In the bladder, there is a Arora catheter present. There is a nevertheless bladder wall thickening me asuring up to 1.1 cm. Arora catheter is clamped IMPRESSION: 1. Persistent severe left hydronephrosis, probably related to distal left ureteral mass lesion. Consi amrita follow-up CT abdomen and pelvis with contrast. 2. Persistent but improved mild to moderate right hydronephrosis. 3. Arora catheter in the bladder. Significant bladder wall thickening present. Reviewed by: Dwight Knox MD on 04/30/2022 2:55 PM AKST Approved by: Dwight Knox MD on 04/30/2022 2:55 PM AKST Station ID: [id number]
== END 2022-04-30 13:05 | disposition home or self-care (01) ==
LOC: DI 13:04
PROVIDERS: ATTEND Urology
DX: N13.30 Unspecified hydronephrosis (principal)
CPT/HCPCS: 36415; 80048

== ENCOUNTER 2022-04-30 14:38 | Outpatient (CLI) | payer OTHER ==
[2022-05-01 17:57] LABS: CREATININE 2.6 mg/dL (0.6-1.2)
[2022-05-01 19:18] LABS: CALCIUM 8.9 mg/dL (8.5-10.3); POTASSIUM 3.4 mmol/L (3.5-5.0)
== END 2022-04-30 14:39 | disposition home or self-care (01) ==
LOC: LAB 14:38
PROVIDERS: ATTEND Urology
DX: N13.30 Unspecified hydronephrosis (principal)
CPT/HCPCS: 36415; 80048

== ENCOUNTER 2022-05-22 12:50 | Outpatient (CLI) | payer OTHER ==
[~2022-05-22 12:50] MED LIST: GADOBUTROL 10 MMOL/10 ML VIAL ONE
[2022-05-22] MEDS: GADOBUTROL 10 MMOL/10 ML VIAL IVP ONE (14:39)
--- NOTE | 2022-05-22 15:02 | MRI Report ---
PROCEDURE: PELVIS W/WO INDICATIONS: LEFT URETERAL MASS TECHNIQUE: Multiphasic multisequence MRI of the pelvis, with and without contrast. 8.2 ml gadolinium based was used COMPARISON: Ultrasound 04/30/2022, 02/12/2022 FINDINGS: There is moderate bilateral hydronephrosis and severe ureterectasis. No distinct filling defects with in the ureters to confirm findings on comparison ultrasound. Bilateral urothelial wall thickening. Se junior thickening of the urinary bladder. No liver mass. Gallbladder is unremarkable. Normal size of the spleen. No pancreatic ductal dilation. No adrenal nodules. Visualized bowel is unremarkable. No central adenopathy. No infrarenal aortic an eurysm. IMPRESSION: No filling defect within the left ureter. Finding on comparison probably represented some form of uri nary sludge. Recommend follow-up ultrasound in one month to ensure resolution of prior findings. Moderate, bilateral hydronephrosis and severe ureterectasis, similar to prior. Diffuse urinary bladder wall thickening and urothelial wall thickening, concerning for infection. Reviewed by: Doc Guerrero on 05/22/2022 3:01 PM PST Approved by: Doc Guerrero on 05/22/2022 3:01 PM PST Station ID: [id number]
== END 2022-05-22 12:51 | disposition home or self-care (01) ==
LOC: DI 12:50
PROVIDERS: ATTEND Urology
DX: N18.4 Chronic kidney disease, stage 4 (severe) (principal); N13.30 Unspecified hydronephrosis; R33.9 Retention of urine, unspecified; N13.4 Hydroureter

== ENCOUNTER 2022-05-22 14:27 | Outpatient (CLI) | payer OTHER ==
[2022-05-22 15:11] LABS: CALCIUM 8.9 mg/dL (8.5-10.3); POTASSIUM 3.7 mmol/L (3.5-5.0)
== END 2022-05-22 14:28 | disposition home or self-care (01) ==
LOC: LAB 14:27
PROVIDERS: ATTEND Urology
DX: Z01.812 Encounter for preprocedural laboratory examination (principal); N18.4 Chronic kidney disease, stage 4 (severe); N13.30 Unspecified hydronephrosis; R33.9 Retention of urine, unspecified; N13.4 Hydroureter
CPT/HCPCS: 36415; 72197; 80048; A9585

== ENCOUNTER 2022-07-16 22:15 | Outpatient (CLI) | payer OTHER ==
--- NOTE | 2022-07-17 17:14 | Ultrasound Report ---
PROCEDURE: Retroperitoneal INDICATIONS: HYDRONEPHROSIS TECHNIQUE: Real-time scanning was performed of the retroperitoneal organs, with image documentation. COMPARISON: Retroperitoneal ultrasound 04/30/2022, 02/12/2022. FINDINGS: Kidneys: Kidneys are normal in size. Right kidney measures 11.6 cm long; left kidney measures 11.6 cm long. Right renal cortical thickness is 1.3 cm; left renal cortical thickness is 0.9 cm. Moderate severe bilateral hydronephrosis relatively unchanged compared to prior exam. Visualized ureters are also dilated. Bladder: Pre-void bladder volume is 466 mL. Post-void residual is 116 mL. Pre-void images demonstr ate no intraluminal masses or stones. On pre-void images, only the right ureteral jet is noted with color Doppler interrogation. (Of note, ureteral jets may not be detectable in up to 25% of cases due to insufficient differences in specific gravity between ureteral and bladder urine). Bladder wall d emonstrates an overall thickened appearance as noted on prior exams. Miscellaneous: No free abdominal fluid. IMPRESSION: Bilateral hydronephrosis and hydroureter appearing relatively unchanged. Based on ultrasound, source of obstruction is not clearly identified. Reviewed by: Gia Mercado MD on 07/17/2022 5:13 PM PDT Approved by: Gia Mercado MD on 07/17/2022 5:13 PM PDT Station ID: [id number]
== END 2022-07-16 22:16 | disposition home or self-care (01) ==
LOC: DI 22:15
PROVIDERS: ATTEND Urology
DX: N13.30 Unspecified hydronephrosis (principal)

== ENCOUNTER 2022-08-08 18:40 | Outpatient (CLI) | payer OTHER ==
[2022-08-08 19:22] LABS: CALCIUM 8.7 mg/dL (8.5-10.3); CREATININE 2.6 mg/dL (0.6-1.2); POTASSIUM 4.5 mmol/L (3.5-5.0)
== END 2022-08-08 18:41 | disposition home or self-care (01) ==
LOC: LAB 18:40
PROVIDERS: ATTEND Urology
DX: N18.4 Chronic kidney disease, stage 4 (severe) (principal)
CPT/HCPCS: 36415; 80048

== ENCOUNTER 2022-09-12 16:58 | Outpatient (CLI) | payer OTHER ==
--- NOTE | 2022-09-13 09:22 | Ultrasound Report ---
PROCEDURE: Retroperitoneal INDICATIONS: BILATERAL HYDRONEPHROSIS TECHNIQUE: Real-time scanning was performed of the retroperitoneal organs, with image documentation. COMPARISON: None. FINDINGS: Kidneys: Kidneys are normal in size. Right kidney measures 12.2 cm long; left kidney measures 11.5 cm long. Right renal cortical thickness is 1.8 cm; left renal cortical thickness is 0 point cm. Mode rate bilateral hydronephrosis. No nephrolithiasis. Bladder: Pre-void bladder volume is 401 mL. Post-void residual is 139 mL. Pre-void images demonstr ate no intraluminal masses or stones. On pre-void images, the left ureteral jets are noted with colo r Doppler interrogation. (Of note, ureteral jets may not be detectable in up to 25% of cases due to insufficient differences in specific gravity between ureteral and bladder urine). Trabeculated bladde r wall. Miscellaneous: No free abdominal fluid. Ureterectasis. Prostate is enlarged, measuring 4.5 x 3.9 x 6.2 cm. IMPRESSION: Moderate bilateral hydronephrosis, likely due to chronic obstruction from a large prostate. Elevated post void residual. Reviewed by: Doc Guerrero on 09/13/2022 9:21 AM PDT Approved by: Doc Guerrero on 09/13/2022 9:21 AM PDT Station ID: [id number]
== END 2022-09-12 16:59 | disposition home or self-care (01) ==
LOC: DI 16:58
PROVIDERS: ATTEND Urology
DX: N13.30 Unspecified hydronephrosis (principal); N40.0 Benign prostatic hyperplasia without lower urinary tract symptoms

== ENCOUNTER 2022-09-17 13:42 | Outpatient (CLI) | payer OTHER ==
[2022-09-17 21:14] LABS: ALBUMIN 4.2 g/dL (3.2-5.5); ALBUMIN/GLOBULIN RATIO 1.3 (1.0-2.2); BILIRUBIN,TOTAL 0.9 mg/dL (0.2-1.0); CALCIUM 8.8 mg/dL (8.5-10.3); CREATININE 3.1 mg/dL (0.6-1.2); POTASSIUM 4.4 mmol/L (3.5-5.0); TOTAL PROTEIN 7.5 g/dL (6.7-8.2)
[2022-09-17 21:48] LABS: ESTIMATED AVERAGE GLUCOSE 183 mg/dL (70-100)
== END 2022-09-17 13:43 | disposition home or self-care (01) ==
LOC: LAB.S 13:42
PROVIDERS: ATTEND Urology
DX: E11.22 Type 2 diabetes mellitus with diabetic chronic kidney disease (principal); N18.4 Chronic kidney disease, stage 4 (severe)
CPT/HCPCS: 36415; 80053; 83036

== ENCOUNTER 2022-10-29 17:49 | Outpatient (CLI) | payer OTHER ==
--- NOTE | 2022-10-30 10:33 | Ultrasound Report ---
PROCEDURE: Retroperitoneal INDICATIONS: BILATERAL HYDRONEPHROSIS TECHNIQUE: Real-time scanning was performed of the retroperitoneal organs, with image documentation. COMPARISON: 09/12/2022 FINDINGS: Right kidney measures 10 cm. Left kidney measures 11 cm. Within the cortices bilaterally measuring 0. 6 to 0.7 cm. Moderate bilateral collecting system dilation, persistent post void. Bladder wall thickening. Enlarged prostate measuring up to 5.4 x 4.3 cm. Postvoid residual is 37.5 cc . Ureteral jets not well seen. (Of note, ureteral jets may not be detectable in up to 25% of cases du e to insufficient differences in specific gravity between ureteral and bladder urine). IMPRESSION: Moderate collecting system dilation, persistent post void. Enlarged prostate. Post void residual is 3 7.5 cc. Persistent bladder wall thickness. Reviewed by: Dane Fernandez MD on 10/30/2022 10:32 AM PDT Approved by: Dane Fernandez MD on 10/30/2022 10:32 AM PDT Station ID: [id number]
== END 2022-10-29 17:50 | disposition home or self-care (01) ==
LOC: DI 17:49
PROVIDERS: ATTEND Urology
DX: N13.30 Unspecified hydronephrosis (principal); N40.0 Benign prostatic hyperplasia without lower urinary tract symptoms

== ENCOUNTER 2022-12-10 06:29 | Day surgery (SDC) | payer OTHER ==
[2022-12-10] MEDS ORDERED: LACTATED RINGERS 1,000 ML IV ONE ×4 (06:35→11:14)
[2022-12-10] MEDS ORDERED: PROPOFOL 500 MG/50 ML 500 MG/50 ML VIAL ONE (06:52)
[2022-12-10] MEDS ORDERED: LIDOCAINE 2% URO-JET 5 ML SYRINGE UR ONE ×2 (07:06→07:56)
[2022-12-10] MEDS ORDERED: ceFAZolin 2 GM VIAL ONE (07:11)
[2022-12-10] MEDS ORDERED: ONDANSETRON 4 MG/2 ML VIAL IVP PRN ×2 (07:13→08:46)
[2022-12-10] MEDS ORDERED: NALOXONE 0.4 MG/ML VIAL IVP PRN (07:13)
[2022-12-10] MEDS ORDERED: ePHEDrine 50 MG/ML VIAL IVP PRN (07:13)
[2022-12-10] MEDS ORDERED: ATROPINE ABBOJECT 1 MG/10 ML SYRINGE IVP PRN (07:13)
[2022-12-10] MEDS ORDERED: fentaNYL 100 MCG/2 ML VIAL IVP PRN (07:13)
[2022-12-10] MEDS ORDERED: HYDROmorphone 0.5 MG/0.5 ML SYRINGE IVP PRN (07:13)
--- NOTE | 2022-12-10 07:13 | ANESTHESIA ---
Pre-Anesthesia VS, & Labs - Diagnosis urinary retention - Procedure cysto w b/l ureteral cath Height: 5 ft 7.5 in Weight (kg): 78.6 kg Body Mass Index: 26.7 BMI Classification: Overweight - NPO >8 hours - Lab Results Current Lab Results: Laboratory Tests 12/10/22 06:53: POC Whole Bld Glucose 111 H Lab results reviewed: Yes Home Medications and Allergies Home Medications: Ambulatory Orders Insulin NPH Hum/Reg Insulin Hm [Humulin 70/30 Kwikpen] 10 unit SUBQ DAILY 12/03/22 Tamsulosin [Flomax] 0.4 mg PO DAILY 12/03/22 amLODIPine [Norvasc] 10 mg PO DAILY 12/03/22 Insulin NPH Hum/Reg Insulin Hm [Humulin 70/30 Kwikpen] 10 unit SUBQ DAILY 12/03/22 Tamsulosin [Flomax] 0.4 mg PO DAILY 12/03/22 amLODIPine [Norvasc] 10 mg PO DAILY 12/03/22 Allergies/Adverse Reactions: Allergies Allergy/AdvReac Type Severity Reaction Status Date / Time No Known Drug Allergies Allergy Verified 04/29/22 15:34 Anes History & Medical History - Anesthetic History Anesthesia Complications: reports: No previous complications Family history of Anesthesia Complications: Denies Family history of Malignant Hyperthermia: Denies - Medical History Cardiovascular: reports: Hypertension Pulmonary: reports: None Gastrointestinal: reports: None Urinary: reports: Retention, Other Musculoskeletal: reports: None Endocrine/Autoimmune: reports: Type 2 diabetes Skin: reports: Eczema Smoking Status: Never smoker Psychosocial: reports: No issues indicated Exam General: Alert, Oriented x3, Cooperative Dental: WNL Mouth Openin Fingerbreadth Neck Mobility: Normal Mallampati classification: II Thyromental Distance: 4-6 cm Respiratory: Lungs clear Cardiovascular: Regular rate Plan Anesthesia Type: General Consent for Procedure(s) Verified and Reviewed: Yes Code Status: Attempt Resuscitation ASA classification: 2-Mild systemic disease Is this case an emergency?: No
[2022-12-10] MEDS ORDERED: MIDAZOLAM 2 MG/2 ML VIAL ONE (07:27)
[2022-12-10] MEDS ORDERED: iohexoL-240 10 ML VIAL IVP ONE ×2 (07:27→07:54)
[2022-12-10] MEDS ORDERED: fentaNYL 100 MCG/2 ML VIAL ONE (07:27)
[2022-12-10] MEDS ORDERED: GLYCOPYRROLATE 1 MG/5 ML VIAL ONE (07:59)
[2022-12-10] MEDS ORDERED: LACTATED RINGERS 1,000 ML IV SCH ×2 (08:00→09:00)
[2022-12-10] MEDS ORDERED: ePHEDrine 50 MG/ML VIAL IVP ONE (08:03)
[2022-12-10] MEDS ORDERED: HYDROcod/ACETAM 5/325 MG TABLET PO PRN (08:46)
--- NOTE | 2022-12-10 08:51 | Discharge Plan ---
Discharge Plan Problem Reviewed?: Yes Disposition: Home, Self Care Condition: Good Prescriptions: Docusate Sodium 100Mg Capsule [Colace 100Mg Capsule] 100 mg PO DAILY #7 cap HYDROcod/ACETAM 5/325 [[place] 5/325] 1 tab PO Q4H PRN #6 tablet PRN Reason: Pain Diet: Diabetic Activity Restrictions: No Restrictions Shower Restrictions: No Driving Restrictions: No Instruction Topics: Stents Ureteral Additional Instructions or Follow Up instructions: You will be contacted for followup in 1-2 weeks, we will arrange a blood test for you to do a few days beforehand No Smoking: If you smoke, Please STOP! Call for help. Follow-up with: Khalif Ramírez MD [Provider Admit Priv/Credential] -
--- NOTE | 2022-12-10 08:55 | OPERATIVE REPORT ---
Operative Report - General Procedure Date: 12/10/22 Planned Procedure: Cystoscopy, cystogram, bilateral retrograde pyelogram, possible bilateral ureteroscopy Pre-Op Diagnosis: bilateral hydronephrosis, renal failure Procedure Performed: Cystoscopy, bilateral retrograde pyelogram, bilateral ureteral stent placement, exam under anesthesia Post Op Diagnosis: Bilateral ureterovesical junction obstruction - Procedure Note Primary Surgeon: Darrell Anesthesia Provider: DEMETRIO Wilson Anesthesia Technique: General LMA Estimated Blood Loss (mL): 0 Indications: Bilateral hydronephrosis, renal failure Findings: Moderate trilobar prostate obstruction Moderate trabeculations in bladder Severe bilateral hydroureter with severe tortuosity Bilateral stents placed Prostate exam without nodules Complications: none - Other Other Information/Narrative: After informed consent was obtained, the patient was brought to the OR and laid in the supine position at that point in time the patient was anesthetized per anesthesia protocols and prepped and draped in the usual sterile fashion in the dorsal lithotomy position. A formal timeout was performed confirming the patient procedure and laterality. A 22 [place] cystoscope was advanced into the urinary bladder. He had trilobar enlargement of his prostate lobes but it did not appear to be severely obstructed though certainly some moderate obstruction possible. The bladder itself has moderate trabeculations and a small diverticula at the dome of the bladder. The ureteral orifices were slightly narrow but otherwise orthotopic. Using a sensor wire to gently cannulate the left UO, a 5 [place] ureteral catheter was placed into the left UO. A gentle retrograde pyelogram showed a severely tortuous and enlarged ureter on the left. Attention was paid to the right side where a similar procedure was performed. Again, there was severe hydroureter seen to the level of the UVJ with severe tortuosity. While keeping the bladder drained with the cystoscope we watch to see if there was any drainage of the ureter of this contrast. On both sides there was minimal to no drainage of the contrast despite adequate drainage of the bladder. Approaching the left UO again, with difficulty, and using a angled Glidewire, we were eventually able to get a wire up into the kidney on the left side and straighten out the ureter. A 6 [place] 26 cm double-J ureteral stent was placed with good curling in the kidney and good curling noted in the bladder. A similar procedure with similar difficulties was repeated on the right. He is bladder was emptied and a Uro-Jet was placed. A digital rectal exam showed a slightly firm, but anodular enlarged prostate about 30cc on my exam. The patient was then reversed from anesthesia and brought to the PACU without further incident. All counts were correct. The plan will be for him to follow-up in 2 weeks time with a basic metabolic panel to evaluate his renal function now that he has possibly been unobstructed. He will likely need further imaging of his pelvis to better assess his anatomy and clarify further plans.
--- NOTE | 2022-12-10 09:34 | ANESTHESIA POST OP EVALUATION ---
Anesthesia Post Eval - Post Anesthesia Eval Vitals: Last Vital Signs Temp 36 C L 12/10/22 09:30 Pulse 68 12/10/22 09:30 Resp 16 12/10/22 09:30 BP 139/80 H 12/10/22 09:30 Pulse Ox 97 12/10/22 09:30 O2 Flow Rate CV Function Including HR & BP: Stable Pain Control: Satisfactory Nausea & Vomiting: Negative Mental Status: Baseline Respiratory Status: Airway Patent Hydration Status: Satisfactory Anesthesia Complications: None
[2022-12-10 11:58] VITALS: BP 148/78; O2SAT 98
--- NOTE | 2022-12-10 15:06 | XRAY Report ---
PROCEDURE: OR C-Arm Procedure INDICATIONS: cystogram FLUORO TIME: 1.3 MIN TECHNIQUE: 2 fluoroscopic views were obtained COMPARISON: None. FINDINGS: 2 fluoroscopic views were obtained during a cystogram procedure. IMPRESSION: Fluoroscopic views as above. Reviewed by: Saulo Lizarraga on 12/10/2022 3:04 PM PDT Approved by: Saulo Lizarraga on 12/10/2022 3:04 PM PDT Station ID: [id number]
== END 2022-12-10 06:30 | disposition home or self-care (01) ==
LOC: SDS 06:29
PROVIDERS: ATTEND Urology
DX: N13.0 Hydronephrosis with ureteropelvic junction obstruction (principal); N32.89 Other specified disorders of bladder; N32.3 Diverticulum of bladder; N13.8 Other obstructive and reflux uropathy; E11.65 Type 2 diabetes mellitus with hyperglycemia; I12.9 Hypertensive chronic kidney disease with stage 1 through stage 4 chronic kidney disease, or unspecified chronic kidney disease; N18.4 Chronic kidney disease, stage 4 (severe); E11.22 Type 2 diabetes mellitus with diabetic chronic kidney disease; Z79.4 Long term (current) use of insulin
CPT/HCPCS: 52005; 52332; C1758; C2617; J7120; Q9966

== ENCOUNTER 2022-12-12 13:26 | Outpatient (CLI) | payer OTHER ==
[2022-12-12 19:42] LABS: HCT - HEMATOCRIT 35.6 % (42.0-52.0); HGB - HEMOGLOBIN 10.9 g/dL (14.0-18.0); MEAN CORPUSCULAR HEMOGLOBIN 27.2 pg (27.0-31.0); MEAN CORPUSCULAR HGB CONC 30.6 g/dL (32.0-36.0); MEAN CORPUSCULAR VOLUME 88.8 fL (80.0-94.0); RED BLOOD COUNT 4.01 10^6/uL (4.70-6.10); RED CELL DISTRIBUTION WIDTH 13.2 % (12.0-15.0)
[2022-12-12 20:07] LABS: CALCIUM 9.7 mg/dL (8.5-10.3); CREATININE 2.1 mg/dL (0.6-1.3); PHOSPHORUS 3.6 mg/dL (2.5-5.0); POTASSIUM 4.7 mmol/L (3.5-4.5)
== END 2022-12-12 13:27 | disposition home or self-care (01) ==
LOC: LAB.S 13:26
PROVIDERS: ATTEND Internal Medicine Nephrology
DX: E11.9 Type 2 diabetes mellitus without complications (principal); N05.9 Unspecified nephritic syndrome with unspecified morphologic changes; N25.81 Secondary hyperparathyroidism of renal origin; E83.30 Disorder of phosphorus metabolism, unspecified; D70.9 Neutropenia, unspecified; D63.1 Anemia in chronic kidney disease
CPT/HCPCS: 36415; 80048; 83970; 84100; 85027

== ENCOUNTER 2023-01-21 06:31 | Day surgery (SDC) | payer OTHER ==
[~2023-01-21 06:31] MED LIST changes: -GADOBUTROL 10 MMOL/10 ML VIAL ONE; +ceFAZolin 2 GM VIAL ONE
[2023-01-21] MEDS ORDERED: LACTATED RINGERS 1,000 ML IV ONE ×2 (06:33→08:37)
[2023-01-21 06:45] VITALS: O2SAT 100
[2023-01-21] MEDS ORDERED: fentaNYL 100 MCG/2 ML VIAL ONE (06:59)
[2023-01-21] MEDS ORDERED: PROPOFOL 500 MG/50 ML 500 MG/50 ML VIAL ONE (06:59)
[2023-01-21] MEDS ORDERED: SUCCINYLCHOLINE 200 MG/10 ML VIAL ONE (07:00)
[2023-01-21] MEDS ORDERED: LIDOCAINE 2% URO-JET 5 ML SYRINGE UR ONE ×2 (07:22→08:18)
[2023-01-21] MEDS ORDERED: HYDROmorphone 0.5 MG/0.5 ML SYRINGE IVP PRN (07:51)
[2023-01-21] MEDS ORDERED: fentaNYL 100 MCG/2 ML VIAL IVP PRN (07:51)
[2023-01-21] MEDS ORDERED: ePHEDrine 50 MG/ML VIAL IVP PRN (07:51)
[2023-01-21] MEDS ORDERED: NALOXONE 0.4 MG/ML VIAL IVP PRN (07:51)
[2023-01-21] MEDS ORDERED: ATROPINE ABBOJECT 1 MG/10 ML SYRINGE IVP PRN (07:51)
[2023-01-21] MEDS ORDERED: ONDANSETRON 4 MG/2 ML VIAL IVP PRN ×2 (07:51→08:40)
--- NOTE | 2023-01-21 07:51 | ANESTHESIA ---
Pre-Anesthesia VS, & Labs - Diagnosis hydronephrosis - Procedure cysto + b/l ureteral stent/dilation Vital Signs: Temp Pulse Resp BP Pulse Ox O2 Flow Rate 36.3 C L 61 16 185/96 H 100 01/21/23 06:38 01/21/23 06:38 01/21/23 06:38 01/21/23 06:38 01/21/23 06:38 Height: 5 ft 7 in Weight (kg): 75.5 kg Body Mass Index: 26.0 BMI Classification: Overweight - NPO >8 hours - Lab Results Current Lab Results: Laboratory Tests 01/21/23 06:51: POC Whole Bld Glucose 123 H Lab results reviewed: Yes Home Medications and Allergies Home Medications: Ambulatory Orders Chlorthalidone 12.5 mg PO DAILY 01/21/23 Insulin NPH Hum/Reg Insulin Hm [Humulin 70/30 Kwikpen] 10 unit SUBQ DAILY PRN 12/03/22 Tamsulosin [Flomax] 0.4 mg PO DAILY 12/03/22 Chlorthalidone 12.5 mg PO DAILY 01/21/23 Allergies/Adverse Reactions: Allergies Allergy/AdvReac Type Severity Reaction Status Date / Time No Known Drug Allergies Allergy Verified 04/29/22 15:34 Anes History & Medical History - Anesthetic History Anesthesia Complications: reports: No previous complications Family history of Anesthesia Complications: Denies Family history of Malignant Hyperthermia: Denies - Medical History Cardiovascular: reports: Hypertension (180's/90s today in preop, pt states he is very anxious, otherwise his bp at the doctor's office is 120s/80s according to pt) Pulmonary: reports: None Gastrointestinal: reports: None Urinary: reports: Retention, Other Musculoskeletal: reports: None Endocrine/Autoimmune: reports: Type 2 diabetes Skin: reports: Eczema Smoking Status: Never smoker Exam General: Alert, Oriented x3, Cooperative Dental: WNL Mouth Openin Fingerbreadth Neck Mobility: Normal Mallampati classification: II Thyromental Distance: 4-6 cm Respiratory: Lungs clear Cardiovascular: Regular rate Plan Anesthesia Type: General Consent for Procedure(s) Verified and Reviewed: Yes Code Status: Attempt Resuscitation ASA classification: 2-Mild systemic disease Is this case an emergency?: No
[2023-01-21] MEDS ORDERED: DEXAMETHASONE 4 MG/ML VIAL ONE (07:53)
[2023-01-21] MEDS ORDERED: ONDANSETRON 4 MG/2 ML VIAL ONE (07:53)
[2023-01-21] MEDS ORDERED: LACTATED RINGERS 1,000 ML IV SCH (08:00)
[2023-01-21] MEDS ORDERED: iohexoL-240 10 ML VIAL IVP ONE ×2 (08:01→08:09)
[2023-01-21] MEDS ORDERED: HYDROcod/ACETAM 5/325 MG TABLET PO PRN (08:40)
--- NOTE | 2023-01-21 08:45 | Discharge Plan ---
Discharge Plan Problem Reviewed?: Yes Disposition: Home, Self Care Condition: Good Prescriptions: Docusate Sodium 100Mg Capsule [Colace 100Mg Capsule] 100 mg PO DAILY #14 cap HYDROcod/ACETAM 5/325 [[place] 5/325] 1 tab PO Q4H PRN #10 tablet PRN Reason: Pain Diet: Regular Activity Restrictions: No Restrictions Shower Restrictions: No Driving Restrictions: No Instruction Topics: Stents Ureteral Plan of Treatment: You will be contacted for stent removal in the office in 3-4 weeks Additional Instructions or Follow Up instructions: Call for fever >100.4 No Smoking: If you smoke, Please STOP! Call for help.
--- NOTE | 2023-01-21 08:48 | OPERATIVE REPORT ---
Operative Report - General Procedure Date: 01/21/23 Planned Procedure: Cystoscopy, bilateral ureteral balloon dilation, bilateral stent exchange Pre-Op Diagnosis: bilateral ureteral obstruction Procedure Performed: Cystoscopy, left ureteroscopy, complex left ureteral stent retrieval, bilateral ureteral balloon dilation, bilateral stent exchange Post Op Diagnosis: bilateral ureteral obstruction - Procedure Note Primary Surgeon: Darrell Anesthesia Provider: DEMETRIO Montiel Pathology: Left ureteral urine cytology right ureteral urine cytology Estimated Blood Loss (mL): 1 Indications: Bilateral UVJ obstruction Findings: Previous left ureteral stent had migrated into distal ureter left UVJ narrow but no obvious pathology seen Bilateral urine cytology sent Bilateral stent exchanged Complications: left ureteral stent migration required complex retrieval - Other Other Information/Narrative: After informed consent was obtained the patient was brought to the OR and laid in the supine position. At that point time the patient was anesthetized per anesthesia protocols and placed in the dorsolithotomy position. He was prepped and draped in the usual sterile fashion. A formal timeout was performed reconfirming the patient, procedure and laterality. A 22 Lebanese cystoscope was advanced into the urinary bladder. He was noted to have trilobar hypertrophy of his prostate. His ureteral orifices were relatively medialized on the trigone. A stent was emanating from the right UO. No stent was seen coming from the left UO. Fluoroscopy confirmed that it had migrated proximally into the distal ureter. A sensor wire attempted to place through the left UO however this ran into difficulty and so an angled Glidewire was used in order to gain access up approximately to the kidney. A 5 Lebanese catheter was placed over this and then a urine cytology was taken and sent for analysis. A sensor wire was replaced and then using a short semirigid ureteroscope we advanced into the distal ureter. The UVJ was narrow but there were no obvious mucosal abnormalities. The left ureteral stent was seen curled in the distal ureter and using a stone basket this was grasped and removed en bloc. Using a 4 cm, 12 Lebanese ureteral balloon dilator, the left UVJ was then dilated to 20 dwain for a total of 2 minutes. A 6 Lebanese 30 cm double-J ureteral stent was then placed with good curling of the kidney and good curling noted in the bladder. I did leave a little loop of string on the distal end of the stents in case it migrates again. Attention was then turned to the right side where again an angled Glidewire was required to gain access to the right kidney. The old stent was grasped and removed. A 5 Lebanese catheter was placed up into the right kidney and a urine cytology was sent. A sensor wire was replaced and then again a 4 cm, 12 Lebanese ureteral balloon dilator was used to dilate the right UVJ to 20 dwain for total of 2 minutes. A 6 Lebanese 30 cm double-J ureteral stent was then placed with good curling noted in the kidney and good curling noted in the bladder on the right side. Again I left a little loop of string on the distal end of the stent to aid in grabbing it in case it migrates. The bladder was emptied and a Uro-Jet was placed. This concluded the procedure patient tolerated procedure well brought to PACU that further incident. All counts were correct. He will go home today with the stents in place. I will plan to remove them in the office in 3 weeks. After that point time I will continue to monitor his kidney function along with obtain a MAG3 scan. If this fails he likely will require ureteral reimplantation.
[2023-01-21 11:06] VITALS: BP 173/91
--- NOTE | 2023-01-21 12:52 | ANESTHESIA POST OP EVALUATION ---
Anesthesia Post Eval - Post Anesthesia Eval Vitals: Last Vital Signs Temp 36 C L 01/21/23 10:59 Pulse 56 L 01/21/23 10:59 Resp 16 01/21/23 10:59 BP 173/91 H 01/21/23 10:59 Pulse Ox 100 01/21/23 10:59 O2 Flow Rate CV Function Including HR & BP: Stable Pain Control: Satisfactory Nausea & Vomiting: Negative Mental Status: Baseline Respiratory Status: Airway Patent Hydration Status: Satisfactory Anesthesia Complications: None
--- NOTE | 2023-01-21 16:44 | XRAY Report ---
PROCEDURE: OR C-Arm Procedure INDICATIONS: Stent placement FLUORO TIME: 1.4 MIN TECHNIQUE: Intraoperative image was obtained. COMPARISON: None. FINDINGS: There is appearance of what appears to be bilateral stents. IMPRESSION: Appearance of likely bilateral stents. However, [id number] is not complete and recommend correlati on to real-time operative report. Reviewed by: Gia Mercado MD on 01/21/2023 4:43 PM PDT Approved by: Gia Mercado MD on 01/21/2023 4:43 PM PDT Station ID: [id number]
== END 2023-01-21 06:32 | disposition home or self-care (01) ==
LOC: SDS 06:31
PROVIDERS: ATTEND Urology
PROC: 0TP98DZ Removal of Intraluminal Device from Ureter, Via Natural or Artificial Opening Endoscopic (ICD-10-PCS; 2023-01-21)
PROC: 0T788DZ Dilation of Bilateral Ureters with Intraluminal Device, Via Natural or Artificial Opening Endoscopic (ICD-10-PCS; 2023-01-21)
PROC: 0T988ZZ Drainage of Bilateral Ureters, Via Natural or Artificial Opening Endoscopic (ICD-10-PCS; principal; 2023-01-21 07:30)
DX: N13.30 Unspecified hydronephrosis (principal); T83.122A Displacement of indwelling ureteral stent, initial encounter; N40.0 Benign prostatic hyperplasia without lower urinary tract symptoms; F41.9 Anxiety disorder, unspecified; I10 Essential (primary) hypertension; E11.9 Type 2 diabetes mellitus without complications
CPT/HCPCS: 52332; 52344; C1758; J0330; J7120; Q9966

== ENCOUNTER 2023-03-13 08:18 | Outpatient (CLI) | payer OTHER ==
[2023-03-13 15:18] LABS: BASOPHILS % (AUTO) 0.5 %; EOSINOPHILS # (AUTO) 0.2 10^3/uL (0.0-0.7); EOSINOPHILS % (AUTO) 2.4 %; HCT - HEMATOCRIT 39.3 % (42.0-52.0); HGB - HEMOGLOBIN 11.9 g/dL (14.0-18.0); LYMPHOCYTES # (AUTO) 2.8 10^3/uL (1.5-3.5); LYMPHOCYTES % (AUTO) 33.7 %; MEAN CORPUSCULAR HEMOGLOBIN 26.9 pg (27.0-31.0); MEAN CORPUSCULAR HGB CONC 30.3 g/dL (32.0-36.0); MEAN CORPUSCULAR VOLUME 88.7 fL (80.0-94.0); MEAN PLATELET VOLUME 11.2 fL (7.4-11.4); MONOCYTES # (AUTO) 0.8 10^3/uL (0.0-1.0); NEUTROPHILS # (AUTO) 4.4 10^3/uL (1.5-6.6); PLT - PLATELET COUNT 185 10^3/uL (130-450); RED BLOOD COUNT 4.43 10^6/uL (4.70-6.10); WHITE BLOOD COUNT 8.4 x10^3/uL (4.8-10.8)
[2023-03-13 16:47] LABS: CALCIUM 9.5 mg/dL (8.5-10.3); CREATININE 1.9 mg/dL (0.6-1.3); POTASSIUM 4.4 mmol/L (3.5-4.5)
[2023-03-13 20:34] LABS: ESTIMATED AVERAGE GLUCOSE 166 mg/dL (70-100); HEMOGLOBIN A1c% 7.4 % (4.27-6.07)
== END 2023-03-13 08:19 | disposition home or self-care (01) ==
LOC: LAB.S 08:18
PROVIDERS: ATTEND Registered Nurse
DX: E11.29 Type 2 diabetes mellitus with other diabetic kidney complication (principal); N05.9 Unspecified nephritic syndrome with unspecified morphologic changes; D70.9 Neutropenia, unspecified; D63.1 Anemia in chronic kidney disease
CPT/HCPCS: 36415; 80048; 82043; 82570; 83036; 85025

== ENCOUNTER 2023-04-05 13:09 | Outpatient (CLI) | payer OTHER ==
[2023-04-05 15:54] LABS: CREATININE,URINE 42.4 mg/dL; MICROALBUM/CREATININE RATIO,UR 110.8 ug/mg (<30.0); MICROALBUMIN,URINE 4.7 mg/dL
[2023-04-05 19:51] LABS: CALCIUM 9.3 mg/dL (8.5-10.3); POTASSIUM 4.1 mmol/L (3.5-4.5)
== END 2023-04-05 13:10 | disposition home or self-care (01) ==
LOC: LAB.S 13:09
PROVIDERS: ATTEND Urology
DX: N13.30 Unspecified hydronephrosis (principal); N40.0 Benign prostatic hyperplasia without lower urinary tract symptoms; E11.29 Type 2 diabetes mellitus with other diabetic kidney complication
CPT/HCPCS: 36415; 80048; 82043; 82570; 84153

== ENCOUNTER 2023-04-29 07:31 | Day surgery (SDC) | payer OTHER ==
[2023-04-29] MEDS: LACTATED RINGERS 1,000 ML IV ONE (07:50)
[2023-04-29] MEDS ORDERED: MIDAZOLAM 2 MG/2 ML VIAL ONE (08:30)
[2023-04-29] MEDS ORDERED: ONDANSETRON 4 MG/2 ML VIAL ONE (08:30)
[2023-04-29] MEDS ORDERED: KETOROLAC 30 MG/ML VIAL ONE (08:30)
[2023-04-29] MEDS ORDERED: fentaNYL 100 MCG/2 ML VIAL ONE (08:30)
[2023-04-29] MEDS ORDERED: PROPOFOL 200 MG/20 ML VIAL IVP ONE (08:30)
[2023-04-29] MEDS ORDERED: LIDOCAINE-PF 2% 10 ML AMP SUBQ ONE (08:30)
[2023-04-29] MEDS ORDERED: NALOXONE 0.4 MG/ML VIAL IVP PRN (09:02)
[2023-04-29] MEDS ORDERED: MORPHINE 2 MG/ML CARPUJECT IVP PRN (09:02)
[2023-04-29] MEDS ORDERED: METOCLOPRAMIDE 10 MG/2 ML VIAL IVP PRN (09:02)
[2023-04-29] MEDS ORDERED: ePHEDrine 50 MG/ML VIAL IVP PRN (09:02)
[2023-04-29] MEDS ORDERED: fentaNYL 100 MCG/2 ML VIAL IVP PRN (09:02)
[2023-04-29] MEDS ORDERED: HYDROmorphone 0.5 MG/0.5 ML SYRINGE IVP PRN (09:02)
[2023-04-29] MEDS ORDERED: ONDANSETRON 4 MG/2 ML VIAL IVP PRN ×2 (09:02→10:23)
[2023-04-29] MEDS ORDERED: ATROPINE ABBOJECT 1 MG/10 ML SYRINGE IVP PRN (09:02)
--- NOTE | 2023-04-29 09:02 | ANESTHESIA ---
Pre-Anesthesia VS, & Labs - Diagnosis B ureteral stent - Procedure cystoscopy, B ureteral stent removal, possible stent placement Vital Signs: Temp Pulse Resp BP Pulse Ox O2 Flow Rate 36.7 C 74 16 180/102 H 99 04/29/23 07:51 04/29/23 07:51 04/29/23 07:51 04/29/23 07:51 04/29/23 07:51 Height: 5 ft 8 in Weight (kg): 84.1 kg Body Mass Index: 28.1 BMI Classification: Overweight - NPO >8 hours - Lab Results Current Lab Results: Laboratory Tests 04/29/23 08:19: POC Whole Bld Glucose 232 H Home Medications and Allergies Insulin NPH Hum/Reg Insulin Hm [Humulin 70/30 Kwikpen] 10 unit SUBQ DAILY PRN 12/03/22 Tamsulosin [Flomax] 0.4 mg PO DAILY 12/03/22 Chlorthalidone 12.5 mg PO DAILY 01/21/23 Allergies/Adverse Reactions: Allergies Allergy/AdvReac Type Severity Reaction Status Date / Time No Known Drug Allergies Allergy Verified 04/29/22 15:34 Anes History & Medical History - Anesthetic History Anesthesia Complications: reports: No previous complications Family history of Anesthesia Complications: Denies Family history of Malignant Hyperthermia: Denies - Medical History Cardiovascular: reports: Hypertension Pulmonary: reports: None Gastrointestinal: reports: None Urinary: reports: Retention, Other Musculoskeletal: reports: None Endocrine/Autoimmune: reports: Type 2 diabetes Skin: reports: Eczema Smoking Status: Never smoker Exam General: Alert, Oriented x3, Cooperative Dental: WNL Mouth Openin Fingerbreadth Neck Mobility: Normal Mallampati classification: II Thyromental Distance: 4-6 cm Respiratory: Lungs clear Cardiovascular: Regular rate Plan Anesthesia Type: General Consent for Procedure(s) Verified and Reviewed: Yes Code Status: Attempt Resuscitation ASA classification: 2-Mild systemic disease Is this case an emergency?: No
[2023-04-29] MEDS ORDERED: LIDOCAINE 2% URO-JET 5 ML SYRINGE UR ONE (09:14)
[2023-04-29] MEDS: LIDOCAINE 2% URO-JET 5 ML SYRINGE UR ONE (09:35)
[2023-04-29] MEDS: iohexoL-240 10 ML VIAL IVP ONE ×2 (09:42)
[2023-04-29] MEDS ORDERED: ePHEDrine 50 MG/ML VIAL IVP ONE (10:00)
[2023-04-29] MEDS ORDERED: LACTATED RINGERS 1,000 ML IV SCH (10:00)
[2023-04-29] MEDS ORDERED: HYDROcod/ACETAM 5/325 MG TABLET PO PRN (10:23)
[2023-04-29] MEDS: LACTATED RINGERS 200 ML IV ONE ×2 (10:27→10:44)
--- NOTE | 2023-04-29 10:44 | Discharge Plan ---
Discharge Plan Problem Reviewed?: Yes Disposition: Home, Self Care Condition: Good Prescriptions: Docusate Sodium 100Mg Capsule [Colace 100Mg Capsule] 100 mg PO DAILY #7 cap cephALEXin [Keflex] 500 mg PO ONCE #1 cap HYDROcod/ACETAM 5/325 [[place] 5/325] 1 tab PO Q4H PRN #10 tablet PRN Reason: Pain Diet: Regular Activity Restrictions: No Restrictions Shower Restrictions: No Driving Restrictions: No Instruction Topics: Stents Ureteral Additional Instructions or Follow Up instructions: You will be contacted for follow-up for stent removal in 6 weeks in the office with Dr. Ramírez. Please take your antibiotic as prescribed before this appointment No Smoking: If you smoke, Please STOP! Call for help.
--- NOTE | 2023-04-29 10:47 | OPERATIVE REPORT ---
Operative Report - General Procedure Date: 04/29/23 Planned Procedure: Cystoscopy, bilateral ureteral stent removal versus exchange, possible bilateral ureteroscopy, possible ureteral dilation Pre-Op Diagnosis: Bilateral ureteral obstruction Procedure Performed: Cystoscopy, right ureteral stent exchange, left ureteral stent removal, bilateral ureteroscopy, bilateral retrograde pyelogram Post Op Diagnosis: Right ureteral obstruction, bilateral severely tortuous hydroureteronephros - Procedure Note Primary Surgeon: Darrell Anesthesia Provider: DEMETRIO Gordon Anesthesia Technique: General LMA Pathology: none Findings: Right stent was exiting right UO, hidden behind the bladder fold Right UO narrow and edematous. Severely hydroureteronephrosis. Could not gain proximal access to right kidney. Stent replaced to bridge UO on right Left UO seemed more open. Stent was in place just proximal to UO and a severely hydroureteronephrosic left renal system. Stent was removed Complications: Could not gain satisfactory access to right proximal renal system and so dilation not performed on the right, stent placed to bridge the narrowed UO - Other Other Information/Narrative: After informed consent was obtained the patient was brought to the OR and laid supine position. At that point time the patient was anesthetized per anesthesia protocols and prepped and draped in usual sterile fashion, in the dorsolithotomy position. A formal timeout was performed reconfirming the patient, procedure and laterality. A 22 [place] cystoscope was advanced easily into the urinary bladder. He was noted to have a mildly enlarged prostate but not significantly obstructive. His bladder appeared enlarged. The left UO was identified in orthotopic position and there was no stent coming out of it. On the right side there actually was a small curl of stents but it was hidden behind a fold of bladder. This stent was grasped and brought out to the urethral meatus. A wire was placed through this into the mid ureter. We could not gain proximal access and so we elected to remove the wire at that time. A cystoscope was then advanced back into the bladder and the left UO was cannulated with a sensor wire. A short semirigid ureteroscope was advanced next to the wire into the distal ureter. The UO did not appear significantly obstructive at that point time. Immediately we could see that the ureter was ma ssively dilated. The stent was curled appropriately at that point. A retrograde pyelogram was performed which showed again a massively dilated ureter all the way to the kidney. An angled Glidewire was used to gain proximal access to the kidney. A 5 [place] ureteral catheter was placed over this and again a retrograde pyelogram was performed showing a massively dilated left renal system. A Super Stiff wire was advanced over this 5 Iranian catheter and left in place. The short semirigid ureteroscope was then advanced back into the distal ureter and a basket was used to grasp the end of the old stent and this was removed en bloc. Attention was then paid to the right side. Using a 22 [place] cystoscope the right UO was cannulated with a sensor wire. We placed a short semirigid ureteroscope next to the wire. The UO on the right did appear more narrow. It is possible that it is still obstructed. The ureter there again was massively dilated in the distal ureter. A retrograde pyelogram was performed showing again a massively dilated hydroureteronephrosic right ureter with severe tortuosity. We attempted to gain proximal access many times with angled glide wires and sensor wires and using a 5 Iranian ureteral catheter. We were able to get proximal access with the angled Glidewire however we could not replace this with a stiffer wire as a 5 Iranian ureteral catheter was not able to traverse over the Glidewire given the severe tortuosity. Similarly, we attempted to place a 6 Iranian 30 cm stent over the Glidewire but it would not curve to the tortuosity. To this end we elected to place the 6 Iranian 30 cm stent over the Glidewire under fluoroscopic guidance. The proximal end was in the proximal ureter. We are not able to gain proximal access to the kidney as we discussed. However we thought this would be a optimal option to bridge a possible obstruction in the UO. The placement of the stent was confirmed cystoscopically. The wire in the left kidney was then removed. We drained his bladder and a Uro-Jet was placed This concluded procedure, the patient tolerated the procedure well. All counts were correct. I will plan to take the stent out in 6 weeks time. I will then obtain a MAG3 scan to have a better assessment of his drainage capabilities. If his renal function remained stable and he remains asymptomatic perhaps this can just be monitored. However, if he does lose function over time or develop symptomatology he may need nephrostomy tubes and/or bilateral ureteral reimplants.
[2023-04-29 11:25] VITALS: BP 172/98; O2SAT 100
--- NOTE | 2023-04-29 11:40 | XRAY Report ---
PROCEDURE: OR C-Arm Procedure INDICATIONS: STENT PLACEMENT FLUORO TIME: 4.5 minutes TECHNIQUE: Intraoperative image was obtained COMPARISON: 12/10/2022, 01/21/2023 FINDINGS: 15 fluoroscopic intraoperative views were obtained demonstrating bilateral nephroureteral stents. IMPRESSION: Intraoperative fluoroscopic views as above. Please see separately dictated intraoperative report for full details. Reviewed by: Marie Ortega MD on 04/29/2023 11:39 AM PST Approved by: Marie Ortega MD on 04/29/2023 11:39 AM PST Station ID: [id number]
--- NOTE | 2023-04-29 12:18 | ANESTHESIA POST OP EVALUATION ---
Anesthesia Post Eval - Post Anesthesia Eval Vitals: Last Vital Signs Temp 36.2 C L 04/29/23 11:12 Pulse 77 04/29/23 11:12 Resp 16 04/29/23 11:12 BP 172/98 H 04/29/23 11:12 Pulse Ox 100 04/29/23 11:12 O2 Flow Rate CV Function Including HR & BP: Stable Pain Control: Satisfactory Nausea & Vomiting: Negative Mental Status: Baseline Respiratory Status: Airway Patent Hydration Status: Satisfactory Anesthesia Complications: None
== END 2023-04-29 07:32 | disposition home or self-care (01) ==
LOC: SDS 07:31
PROVIDERS: ATTEND Urology
DX: N13.1 Hydronephrosis with ureteral stricture, not elsewhere classified (principal); N40.0 Benign prostatic hyperplasia without lower urinary tract symptoms; I10 Essential (primary) hypertension; E11.22 Type 2 diabetes mellitus with diabetic chronic kidney disease; I12.9 Hypertensive chronic kidney disease with stage 1 through stage 4 chronic kidney disease, or unspecified chronic kidney disease; N18.4 Chronic kidney disease, stage 4 (severe); Z79.4 Long term (current) use of insulin
CPT/HCPCS: 52310; 52332; C1758; J7120; Q9966

== ENCOUNTER 2023-10-30 09:34 | Outpatient (CLI) | payer OTHER | END 2023-10-30 09:35 | disposition short-term general hospital (02) | LOC: EMS 09:34 | DX: R47.9 Unspecified speech disturbances (principal); R47.81 Slurred speech; R20.0 Anesthesia of skin; R53.1 Weakness | CPT/HCPCS: A0425; A0429 ==

== ENCOUNTER 2023-12-02 09:18 | Outpatient (CLI) | payer OTHER ==
[2023-12-02 15:00] LABS: BASOPHILS % (AUTO) 0.3 %; EOSINOPHILS # (AUTO) 0.3 10^3/uL (0.0-0.7); EOSINOPHILS % (AUTO) 4.3 %; HCT - HEMATOCRIT 33.1 % (42.0-52.0); HGB - HEMOGLOBIN 10.6 g/dL (14.0-18.0); MEAN CORPUSCULAR HEMOGLOBIN 26.9 pg (27.0-31.0); MEAN PLATELET VOLUME 10.4 fL (7.4-11.4); MONOCYTES # (AUTO) 0.8 10^3/uL (0.0-1.0); MONOCYTES % (AUTO) 11.8 %; NEUTROPHILS # (AUTO) 3.7 10^3/uL (1.5-6.6); NEUTROPHILS % (AUTO) 54.5 %; PLT - PLATELET COUNT 229 10^3/uL (130-450); RED BLOOD COUNT 3.94 10^6/uL (4.70-6.10); RED CELL DISTRIBUTION WIDTH 11.9 % (12.0-15.0); WHITE BLOOD COUNT 6.8 x10^3/uL (4.8-10.8)
[2023-12-02 16:00] LABS: ALBUMIN 3.9 g/dL (3.2-5.5); ALBUMIN/GLOBULIN RATIO 1.5 (1.0-2.2); ALKALINE PHOSPHATASE 102 IU/L (42-121); ALT ALANINE AMINOTRANSFERASE 15 IU/L (10-60); AST ASPARTATE AMINOTRANSFERASE 23 IU/L (10-42); BILIRUBIN,TOTAL 0.3 mg/dL (0.2-1.0); BUN - BLOOD UREA NITROGEN 49 mg/dL (6-20); CALCIUM 8.7 mg/dL (8.5-10.3); CARBON DIOXIDE - CO2 25 mmol/L (21-32); CHLORIDE 103 mmol/L (101-111); CHOL/HDL RATIO 3.1 (<5.0); CHOLESTEROL 75 mg/dL; CREATININE 2.4 mg/dL (0.6-1.3); GFR - MDRD 27 (>89); GLUCOSE 89 mg/dL (74-104); HDL CHOLESTEROL 24 mg/dL; LDL CHOLESTEROL,CALCULATED 35 mg/dL; LDL/HDL RATIO 1.5 (<3.6); POTASSIUM 4.3 mmol/L (3.5-4.5); SODIUM 133 mmol/L (135-145); TOTAL PROTEIN 6.5 g/dL (6.4-8.9); TRIGLYCERIDES 82 mg/dL; VLDL CHOLESTEROL 16 mg/dL
[2023-12-02 16:16] LABS: THYROID STIMULATING HORMONE 1.36 uIU/mL (0.34-5.60)
[2023-12-02 19:13] LABS: ESTIMATED AVERAGE GLUCOSE 209 mg/dL (70-100); HEMOGLOBIN A1c% 8.9 % (4.27-6.07)
[2023-12-02 20:29] LABS: CREATININE,URINE 85.6 mg/dL; MICROALBUM/CREATININE RATIO,UR 26.9 ug/mg (<30.0); MICROALBUMIN,URINE 2.3 mg/dL
== END 2023-12-02 09:19 | disposition home or self-care (01) ==
LOC: LAB.S 09:18
PROVIDERS: ATTEND Registered Nurse
DX: E11.29 Type 2 diabetes mellitus with other diabetic kidney complication (principal); Z13.228 Encounter for screening for other metabolic disorders; Z13.220 Encounter for screening for lipoid disorders; Z13.29 Encounter for screening for other suspected endocrine disorder; Z13.0 Encounter for screening for diseases of the blood and blood-forming organs and certain disorders involving the immune mechanism
CPT/HCPCS: 36415; 80053; 80061; 82043; 82570; 83036; 83721; 84443; 85025